=== PATIENT | male | born 1970 | race Caucasian/White ===

== ENCOUNTER 2021-03-21 19:27 | Observation (INO) ==
--- NOTE | 2021-03-21 19:37 | ED.PDOC ---
General ED Provider: Dr. ASH BUCK Stated Complaint: right knee painful today, no injury Mode of Arrival: Walk-In Information Source: Patient Exam Limitations: No limitations Nursing and Triage Documentation Reviewed and Agree: Yes Does patient meet sepsis criteria?: No System Inflammatory Response Syndrome: Not Applicable Sepsis Protocol: For patient's 13 years and over: Temp is 96.8 and below OR 101 and greater Pulse >90 BPM Resp >20/minute Acutely Altered Mental Status Are patient's symptoms suggestive of a new infection, such as: -Pneumonia -Skin, Soft Tissue -Endocarditis -UTI -Bone, Joint Infection -Implantable Device -Acute Abdominal Infection -Wound Infection -Meningitis -Blood Stream Catheter Infection -Unknown Musculoskeletal Complaint Exam Knee Pain Complaint/Exam Mechanism of Injury: Reports No known trauma Onset/Duration: Climbs a lot at work, denies kneeling, no wound. Symptoms Are: Still present Initial Severity: Moderate Current Severity: Moderate Location: Reports Discrete (right knee area) Character: Reports Dull, Aching and Throbbing Alleviating: Reports None Aggravating: Reports Movement, Weight bearing and Prolonged standing Associated Signs and Symptoms: Reports Swelling and Redness; Denies Bruising, Fever, Weakness, Numbness and Tingling Able to Bear Weight: Yes Related History: Reports Similar episode (No) and Occupational injury (Not clear) Septic Arthritis Risk Factors: Reports None Gout Risk Factors: Reports >40 years old, Male and Psoriasis Knee Findings: Present Swelling, Erythema, Warmth and Limited range of motion; Absent Ecchymosis and Effusion Tenderness: Present Pre-patellar and Joint (Difficult to know if joint itself inflamed because of overlying cellulitis) Hero Test Positive: No Dayanna Test Positive: No Limited Range of Motion: Present Active Review of Systems Review Of Systems Constitutional: Reports No symptoms Eyes: Reports No symptoms Ears, Nose, Mouth, Throat: Reports No symptoms Respiratory: Reports No symptoms Cardiac: Reports No symptoms GI: Reports No symptoms : Reports No symptoms Musculoskeletal: Reports No symptoms Skin: Reports No symptoms Neurological: Reports No symptoms Endocrine: Reports No symptoms Hematologic/Lymphatic: Reports No symptoms All Other Systems: Reviewed and Negative [facility] Medical History (Updated 03/22/21 @ 06:56 by ASH BUCK MD) Cellulitis of knee, right Psoriasis Family History BROTHER Cancer Mother Cancer AUNT Cancer FATHER Cancer Social History Smoking and tobacco status: Current every day smoker Tobacco type: cigarettes Smoking packs per day: 1 Smoking cigarettes per day: 20.0 Years smoked: 27 Smoking pack-years: 27.00 Tobacco: How many years used: 27 Quit status: not considering quitting Alcohol intake: never Physical Exam Physical Exam Appearance: Reports Well-appearing Ill-appearing: Mild Pain Distress: Moderate Eyes: Reports TRI ENT: Reports Oropharynx normal Neck: Supple Respiratory: Reports Airway patent and Breath sounds clear Cardiovascular: Reports RRR and Pulses normal GI/: Reports Soft and Nontender Musculoskeletal: Reports Normal strength, ROM intact and Other (normal exam except right knee area reveals soft tissue inflammation and pain, no abscess, does not seem to be an infected joint.) Skin: Reports Warm, Dry and Other (psoriasis noted, including over the anterior right knee) Neurological: Reports Sensation intact, Motor intact and Alert Psychiatric: Reports Affect appropriate and Mood appropriate Interpretation Radiology Interpretation Radiology Interpretation By: Radiologist Radiology Results: Negative Xray Comments: Right knee neg Procedures Additional Procedures Additional Procedures: Joint Aspiration (No joint fluid obtained after attempt from both medial and lateral approach. No complications.) Critical Care Note Critical Care Note Total Critical Care Time (mins): 0 Course Course Hematology/Chemistry: 03/22/21 04:48 03/21/21 20:20 Orders, Labs, Meds: Lab Review 03/21/21 03/21/21 03/21/21 20:20 20:20 20:20 WBC 23.89 H RBC 4.81 Hgb 14.9 Hct 42.8 MCV 89.0 MCH 31.0 MCHC 34.8 RDW Coeff of Aria 13.3 Plt Count 303 Immature Gran % (Auto) 0.4 Neut % (Auto) 75.9 H Lymph % (Auto) 13.4 Day % (Auto) 9.8 Eos % (Auto) 0.2 Baso % (Auto) 0.3 Neut # (Auto) 18.1 H Lymph # (Auto) 3.2 Day # (Auto) 2.3 H Eos # (Auto) 0.1 Baso # (Auto) 0.1 Immature Gran # (Auto) 0.1 Sodium 134.8 Potassium 4.22 Chloride 103.0 Carbon Dioxide 25.2 Anion Gap 10.82 BUN 21.0 H Creatinine 0.86 Estimated GFR (MDRD) 93.00 BUN/Creatinine Ratio 24.41 Glucose 112.4 H Uric Acid 8.25 Calcium 9.07 Total Bilirubin 0.72 AST 37.3 ALT 33.7 Alkaline Phosphatase 95.7 Total Protein 7.30 Albumin 4.22 Globulin 3.08 Albumin/Globulin Ratio 1.37 D-Dimer 365.72 Adenovirus (PCR) B. pertussis DNA (PCR) B.parapertussis DNA PCR C. pneumoniae DNA (PCR) Coronavirus OC43 (PCR) Coronavirus HKU1 (PCR) Coronavirus 229E (PCR) Coronavirus NL63 (PCR) Human Metapneumovir PCR Influenza Type A (PCR) Influenza B (RT-PCR) M. pneumoniae (PCR) Parainfluenza 1 (PCR) Parainfluenza 2 (PCR) Parainfluenza 3 (PCR) Parainfluenza 4 (PCR) RSV (PCR) Entero/Rhino (PCR) SARS-CoV-2 (PCR) 03/21/21 20:50 WBC RBC Hgb Hct MCV MCH MCHC RDW Coeff of Aria Plt Count Immature Gran % (Auto) Neut % (Auto) Lymph % (Auto) Day % (Auto) Eos % (Auto) Baso % (Auto) Neut # (Auto) Lymph # (Auto) Day # (Auto) Eos # (Auto) Baso # (Auto) Immature Gran # (Auto) Sodium Potassium Chloride Carbon Dioxide Anion Gap BUN Creatinine Estimated GFR (MDRD) BUN/Creatinine Ratio Glucose Uric Acid Calcium Total Bilirubin AST ALT Alkaline Phosphatase Total Protein Albumin Globulin Albumin/Globulin Ratio D-Dimer Adenovirus (PCR) Not detected B. pertussis DNA (PCR) Not detected B.parapertussis DNA PCR Not detected C. pneumoniae DNA (PCR) Not detected Coronavirus OC43 (PCR) Not detected Coronavirus HKU1 (PCR) Not detected Coronavirus 229E (PCR) Not detected Coronavirus NL63 (PCR) Not detected Human Metapneumovir PCR Not detected Influenza Type A (PCR) Not detected Influenza B (RT-PCR) Not detected M. pneumoniae (PCR) Not detected Parainfluenza 1 (PCR) Not detected Parainfluenza 2 (PCR) Not detected Parainfluenza 3 (PCR) Not detected Parainfluenza 4 (PCR) Not detected RSV (PCR) Not detected Entero/Rhino (PCR) Not detected SARS-CoV-2 (PCR) Not detected Orders Category Date Time Status ADMIT OBSERVATION [PLACE PATIENT OBSERVATION] .TO ADMISSION 03/21/21 22:11 Active MEDSURG (NON-MONITORED BED) ACTIVITY .BR with BRP CARE 03/21/21 22:14 Active REGULAR DIET DIETARY 03/21/21 Breakfast Ordered IV [ED IV/MEDIPORT/POWERPORT] .ONCE EMERGENCY 03/21/21 21:25 Active BLOOD CULTURE (ED ONLY) Stat LAB 03/21/21 22:26 Received C-REACTIVE PROTEIN Stat LAB 03/21/21 21:24 Ordered CBC W/ AUTO DIFF DAILY@0600 LAB 03/22/21 06:00 Ordered CBC W/ AUTO DIFF DAILY@0600 LAB 03/23/21 06:00 Ordered CBC W/ AUTO DIFF Stat LAB 03/21/21 20:20 Completed COMPREHENSIVE METABOLIC PANEL Stat LAB 03/21/21 20:20 Completed D-DIMER Stat LAB 03/21/21 20:20 Completed RESPIRATORY PANEL 2.1 (PCR) Stat LAB 03/21/21 20:50 Completed URIC ACID Stat LAB 03/21/21 20:20 Completed 0.9 % Sodium Chloride [Saline Flush] MEDS 03/21/21 21:25 Active 1 syr IVF PRN PRN Cefepime 1 gm Vial [Maxipime 1 gm Vial] MEDS 03/21/21 22:21 Discontinued 1 gm .ROUTE .STK-MED ONE Cefepime 1 gm Vial [Maxipime 1 gm Vial] 1 gm MEDS 03/21/21 22:09 Discontinued 0.9 % Sodium Chloride [Sodium Chloride] 50 ml IV ONCE Enoxaparin Sodium [Lovenox] MEDS 03/22/21 09:00 Active 40 mg SUBCUT DAILY Hydrocodone Bit/Acetaminophen [[place]udson 10-325] MEDS 03/21/21 22:10 Discontinued 1 tab PO ONCE ONE Ketorolac Tromethamine [Toradol] MEDS 03/21/21 20:03 Discontinued 60 mg IM ONCE ONE Vancomycin 1 gm MEDS 03/21/21 22:12 Discontinued 0.9 % Sodium Chloride [Sodium Chloride] 250 ml IV ONCE RESUSCITATION STATUS Routine OTHERS 03/21/21 22:14 Ordered KNEE, RIGHT 4 VIEWS Stat RADS 03/21/21 20:15 Completed Medications Generic Name Dose Route Start Last Admin Trade Name Freq PRN Reason Stop Dose Admin Hydrocodone Bitart/Acetaminophen 1 tab 03/22/21 01:55 Hydrocodone Bit/Acetaminophen 10/325 Mg Tablet PO Q6HR PRN Pain Enoxaparin Sodium 40 mg 03/22/21 09:00 Enoxaparin Sodium 40 Mg/0.4 Ml Syr SUBCUT DAILY REINALDO CEFEPIME 2 GM/D5W 2 gm in 50 mls @ 100 mls/hr 03/22/21 07:30 Maxipime 2 Gm/50 Ml D5w IV 03/25/21 07:29 Q8HR REINALDO Sodium Chloride 1 syr 03/21/21 21:25 03/22/21 05:53 0.9% Sodium Chloride 10 Ml Disp.Syrin IVF 1 syr PRN PRN Administration To flush IV Discontinued Medications Generic Name Dose Route Start Last Admin Trade Name Terryq PRN Reason Stop Dose Admin Hydrocodone Bitart/Acetaminophen 1 tab 03/21/21 22:10 03/21/21 22:35 Hydrocodone Bit/Acetaminophen 10/325 Mg Tablet PO 03/21/21 22:11 1 tab ONCE ONE Administration Cefepime HCl 1 gm/ Sodium 50 mls @ 50 mls/hr 03/21/21 22:09 03/21/21 22:32 Chloride IV 03/21/21 23:08 50 mls/hr ONCE ONE Administration Vancomycin HCl 1 gm/ Sodium 250 mls @ 250 mls/hr 03/21/21 22:12 03/22/21 00:02 Chloride IV 03/21/21 23:11 250 mls/hr ONCE ONE Administration Ketorolac Tromethamine 60 mg 03/21/21 20:03 03/21/21 20:13 Ketorolac Tromethamine 60 Mg/2 Ml Vial IM 03/21/21 20:04 60 mg ONCE ONE Administration Nicotine 1 patch 03/22/21 01:55 03/22/21 02:18 Nicotine 21 Mg Patch.Td24 TD 03/22/21 01:56 1 patch ONCE STA Administration Vital Signs: Temp Pulse Resp BP Pulse Ox 03/21/21 19:32 98.7 F 89 20 149/67 H 96 Discharge Plan Discharge Patient Disposition: PLACED OBSERVATION Discharge Problem: Cellulitis of knee, right ED Provider: ASH BUCK Condition: Stable Physician Progress Note: [Infection in overlying soft tissues right knee, cellulitis, no abscess. Joint itself not involved as aspiration did not reveal any synovial fluid to analyze. He has psoriasis on the anterior knee, tiny open area may be led to the cellulitis. WBC count up, o/w unremarkable labs. X-ray neg. Start cefepime and vanc, pharmacist to dose tomorrow. Pain med prn, elevate, heat. No PCP, will place in observation, he will not want to be in the hospital very long.]
[2021-03-21] MEDS ORDERED: TORADOL IM ONE (20:03)
[2021-03-21 20:25] LABS: BASOPHILS # (AUTO) 0.1 K/uL (0-0.2); BASOPHILS % (AUTO) 0.3 % (0.0-3.0); EOSINOPHILS # (AUTO) 0.1 K/ul (0.0-0.7); EOSINOPHILS % (AUTO) 0.2 % (0.0-7.0); HEMATOCRIT 42.8 % (42.0-52.0); HEMOGLOBIN 14.9 g/dl (14.0-18.0); IMMATURE GRANULOCYTE # (AUTO) 0.1 (0.0-1.0); IMMATURE GRANULOCYTE % (AUTO) 0.4 % (0.0-5.0); LYMPHOCYTES # (AUTO) 3.2 K/uL (0.60-3.4); LYMPHOCYTES % (AUTO) 13.4 (10.0-50.0); MEAN CORPUSCULAR HGB CONC 34.8 (31.8-35.4); MONOCYTES # (AUTO) 2.3 K/uL (0.4-2.0); MONOCYTES % (AUTO) 9.8 (0-10); NEUTROPHILS # (AUTO) 18.1 K/ul (2.0-6.9); NEUTROPHILS % (AUTO) 75.9 % (42.2-75.2); PLATELET COUNT 303 10^3/uL (140-440); RDW COEFFICIENT OF VARIATION 13.3 % (11.6-14.8); RED BLOOD COUNT 4.81 10^6/ul (4.70-6.10); WHITE BLOOD COUNT 23.89 K/ul (4.2-10.2)
[2021-03-21 20:36] LABS: ALANINE AMINOTRANSFERASE 33.7 U/L (0-50); ALBUMIN 4.22 g/dL (3.5-5.0); ALKALINE PHOSPHATASE 95.7 U/L (38-126); ASPARTATE AMINO TRANSFERASE 37.3 U/L (17-59); BILIRUBIN,TOTAL 0.72 mg/dL (0.2-1.3); CALCIUM 9.07 mg/dL (8.4-10.2); CARBON DIOXIDE 25.2 mmol/L (22-30.0); CREATININE 0.86 mg/dL (0.60-1.10); GLUCOSE 112.4 mg/dL (74-106); POTASSIUM 4.22 mmol/L (3.5-5.1); SODIUM 134.8 mmol/L (134.5-145); TOTAL PROTEIN 7.3 g/dL (6.3-8.2); URIC ACID 8.25 mg/dL (3.5-8.5)
--- NOTE | 2021-03-21 20:54 | DI ---
EXAM: Four views of the right knee. History: Right knee pain. Findings: No acute fracture or dislocation. No abnormal calcifications or radiopaque foreign bodies . Joint spaces are preserved. Mild anterior soft tissue swelling Impression: No acute osseous abnormality
[2021-03-21] MEDS ORDERED: MAXIPIME 1 GM VIAL 1 GM in SODIUM CHLORIDE 50 ML IV ONE (22:09)
[2021-03-21] MEDS ORDERED: NORCO 10-325 PO ONE (22:10)
[2021-03-21] MEDS ORDERED: VANCOMYCIN 1 GM in SODIUM CHLORIDE 250 ML IV ONE (22:12)
[2021-03-21] MEDS ORDERED: MAXIPIME 1 GM VIAL ONE (22:21)
[2021-03-21 22:55] LABS: BORDETELLA PARAPERTUSSIS (PCR) NOT DETECTED (NOT DETECT); BORDETELLA PERTUSSIS (PCR) NOT DETECTED (NOT DETECT); CHLAMYDIA PNEUMONIAE (PCR) NOT DETECTED (NOT DETECT); CORONAVIRUS 229E (PCR) NOT DETECTED (NOT DETECT); CORONAVIRUS HKU1 (PCR) NOT DETECTED (NOT DETECT); CORONAVIRUS NL63 (PCR) NOT DETECTED (NOT DETECT); CORONAVIRUS OC43 (PCR) NOT DETECTED (NOT DETECT); HUMAN METAPNEUMOVIRUS (PCR) NOT DETECTED (NOT DETECT); HUMAN RHINOVIRUS/ENTEROV (PCR) NOT DETECTED (NOT DETECT); INFLUENZA B (PCR) NOT DETECTED (NOT DETECT); MYCOPLASMA PNEUMONIAE (PCR) NOT DETECTED (NOT DETECT); PARAINFLUENZA VIRUS 1 (PCR) NOT DETECTED (NOT DETECT); PARAINFLUENZA VIRUS 2 (PCR) NOT DETECTED (NOT DETECT); PARAINFLUENZA VIRUS 3 (PCR) NOT DETECTED (NOT DETECT); PARAINFLUENZA VIRUS 4 (PCR) NOT DETECTED (NOT DETECT); RESPIRATORY SYNCYTIAL V (PCR) NOT DETECTED (NOT DETECT); SARS_COV_2 (PCR) NOT DETECTED (NOT DETECT)
[2021-03-21 23:43] LABS: ADENOVIRUS (PCR) NOT DETECTED (NOT DETECT)
[2021-03-22 01:34] VITALS: BMI 29.9
[2021-03-22] MEDS ORDERED: NICODERM 21 MG TD STA (01:55)
[2021-03-22] MEDS ORDERED: NORCO 10-325 PO PRN (01:55)
[2021-03-22 05:04] LABS: BASOPHILS # (AUTO) 0.1 K/uL (0-0.2); BASOPHILS % (AUTO) 0.3 % (0.0-3.0); EOSINOPHILS # (AUTO) 0.2 K/ul (0.0-0.7); HEMATOCRIT 41.8 % (42.0-52.0); HEMOGLOBIN 14.3 g/dl (14.0-18.0); IMMATURE GRANULOCYTE # (AUTO) 0.1 (0.0-1.0); IMMATURE GRANULOCYTE % (AUTO) 0.3 % (0.0-5.0); LYMPHOCYTES # (AUTO) 4.7 K/uL (0.60-3.4); LYMPHOCYTES % (AUTO) 23.8 (10.0-50.0); MEAN CORPUSCULAR HEMOGLOBIN 30.9 pg (27.0-31.0); MEAN CORPUSCULAR HGB CONC 34.2 (31.8-35.4); MEAN CORPUSCULAR VOLUME 90.3 fl (80.0-94.0); MONOCYTES # (AUTO) 2.2 K/uL (0.4-2.0); MONOCYTES % (AUTO) 11.1 (0-10); NEUTROPHILS # (AUTO) 12.5 K/ul (2.0-6.9); NEUTROPHILS % (AUTO) 63.5 % (42.2-75.2); PLATELET COUNT 274 10^3/uL (140-440); RDW COEFFICIENT OF VARIATION 13.3 % (11.6-14.8); RED BLOOD COUNT 4.63 10^6/ul (4.70-6.10); WHITE BLOOD COUNT 19.62 K/ul (4.2-10.2)
[2021-03-22] MEDS ORDERED: MAXIPIME 1 GM VIAL 1 GM in SODIUM CHLORIDE 50 ML IV ONE (07:00)
--- NOTE | 2021-03-22 07:11 | PCM ---
Chief Complaint Chief Complaint: Right knee painful for one day without injury. History of Present Illness History of Present Illness: Right knee began to hurt while at work today. Climbs a lot at work, but does not kneel on that knee. It became quite inflamed, no f ever, not o/w ill, no wound known. Does have psoriasis in extremities, including anterior knee. No hx of gout. Never had this problem before. Review of Systems Constitutional: Reports No symptoms Eyes: Reports No symptoms Ears: Reports No symptoms Nose: Reports No symptoms Throat: Reports No symptoms Mouth: Reports No symptoms Cardiovascular: Reports No symptoms Gastrointestinal: Reports No symptoms Genitourinary: Reports No symptoms Neurological: Reports No symptoms Musculoskeletal: Reports No symptoms Skin: Reports No symptoms Immunology: Reports No symptoms Hematology: Reports No symptoms Endocrine: Reports No symptoms Psychiatric: Reports No symptoms Habits: Reports Tobacco use Allergies Allergies Allergy/AdvReac Type Severity Reaction Status Date / Time meperidine [From Demerol] AdvReac Unknown Verified 03/21/21 19:51 [facility] Medical History (Updated 03/22/21 @ 06:56 by ASH BUCK MD) Cellulitis of knee, right Psoriasis Family History BROTHER Cancer Mother Cancer AUNT Cancer FATHER Cancer Social History Smoking and tobacco status: Current every day smoker Tobacco type: cigarettes Smoking packs per day: 1 Smoking cigarettes per day: 20.0 Years smoked: 27 Smoking pack-years: 27.00 Tobacco: How many years used: 27 Quit status: not considering quitting Alcohol intake: never Medications Medications: Medications Generic Name Dose Route Start Last Admin Trade Name Freq PRN Reason Stop Dose Admin Hydrocodone Bitart/Acetaminophen 1 tab 03/22/21 01:55 Hydrocodone Bit/Acetaminophen 10/325 Mg Tablet PO Q6HR PRN Pain Enoxaparin Sodium 40 mg 03/22/21 09:00 Enoxaparin Sodium 40 Mg/0.4 Ml Syr SUBCUT DAILY REINALDO Vancomycin HCl 1 gm/ Sodium 250 mls @ 250 mls/hr 03/22/21 09:00 Chloride IV 03/22/21 09:59 ONCE ONE Cefepime HCl 1 gm/ Sodium 50 mls @ 50 mls/hr 03/22/21 07:00 Chloride IV 03/22/21 07:59 ONCE ONE Sodium Chloride 1 syr 03/21/21 21:25 03/22/21 05:53 0.9% Sodium Chloride 10 Ml Disp.Syrin IVF 1 syr PRN PRN Administration To flush IV Body Composition Height: 5 ft 8.5 in Weight: 90.5 kg Body Mass Index (BMI): 29.9 Vital Signs Temperature: 98.0 F Pulse Rate: 70 Respiratory Rate: 18 Blood Pressure: 101/68 O2 Sat by Pulse Oximetry: 95 Physical Examination Appearance: Reports Well-appearing Ill-appearing: None Pain Distress: Moderate Eyes: Reports TRI ENT: Reports Oropharynx normal Neck: Supple Respiratory: Reports Airway patent and Breath sounds clear Cardiovascular: Reports RRR and Pulses normal GI/: Reports Soft and Nontender Musculoskeletal: Reports Normal strength, ROM intact and Other (Right knee inflamed in the soft tissues, joint itself does not seem imvolved.) Skin: Reports Warm and Dry Neurological: Reports Sensation intact, Motor intact, Alert and Alert to pain Psychiatric: Reports Affect appropriate and Mood appropriate Lab/Tests/Diagnostic Imaging Lab/Tests/Diagnostic Imaging: Lab Review 03/21/21 03/21/21 03/21/21 20:20 20:20 20:20 WBC 23.89 H RBC 4.81 Hgb 14.9 Hct 42.8 MCV 89.0 MCH 31.0 MCHC 34.8 RDW Coeff of Aria 13.3 Plt Count 303 Immature Gran % (Auto) 0.4 Neut % (Auto) 75.9 H Lymph % (Auto) 13.4 Barton % (Auto) 9.8 Eos % (Auto) 0.2 Baso % (Auto) 0.3 Neut # (Auto) 18.1 H Lymph # (Auto) 3.2 Barton # (Auto) 2.3 H Eos # (Auto) 0.1 Baso # (Auto) 0.1 Immature Gran # (Auto) 0.1 Sodium 134.8 Potassium 4.22 Chloride 103.0 Carbon Dioxide 25.2 Anion Gap 10.82 BUN 21.0 H Creatinine 0.86 Estimated GFR (MDRD) 93.00 BUN/Creatinine Ratio 24.41 Glucose 112.4 H Uric Acid 8.25 Calcium 9.07 Total Bilirubin 0.72 AST 37.3 ALT 33.7 Alkaline Phosphatase 95.7 Total Protein 7.30 Albumin 4.22 Globulin 3.08 Albumin/Globulin Ratio 1.37 D-Dimer 365.72 Adenovirus (PCR) B. pertussis DNA (PCR) B.parapertussis DNA PCR C. pneumoniae DNA (PCR) Coronavirus OC43 (PCR) Coronavirus HKU1 (PCR) Coronavirus 229E (PCR) Coronavirus NL63 (PCR) Human Metapneumovir PCR Influenza Type A (PCR) Influenza B (RT-PCR) M. pneumoniae (PCR) Parainfluenza 1 (PCR) Parainfluenza 2 (PCR) Parainfluenza 3 (PCR) Parainfluenza 4 (PCR) RSV (PCR) Entero/Rhino (PCR) SARS-CoV-2 (PCR) 03/21/21 03/22/21 20:50 04:48 WBC 19.62 H RBC 4.63 L Hgb 14.3 Hct 41.8 L MCV 90.3 MCH 30.9 MCHC 34.2 RDW Coeff of Aria 13.3 Plt Count 274 Immature Gran % (Auto) 0.3 Neut % (Auto) 63.5 Lymph % (Auto) 23.8 Barton % (Auto) 11.1 H Eos % (Auto) 1.0 Baso % (Auto) 0.3 Neut # (Auto) 12.5 H Lymph # (Auto) 4.7 H Barton # (Auto) 2.2 H Eos # (Auto) 0.2 Baso # (Auto) 0.1 Immature Gran # (Auto) 0.1 Sodium Potassium Chloride Carbon Dioxide Anion Gap BUN Creatinine Estimated GFR (MDRD) BUN/Creatinine Ratio Glucose Uric Acid Calcium Total Bilirubin AST ALT Alkaline Phosphatase Total Protein Albumin Globulin Albumin/Globulin Ratio D-Dimer Adenovirus (PCR) Not detected B. pertussis DNA (PCR) Not detected B.parapertussis DNA PCR Not detected C. pneumoniae DNA (PCR) Not detected Coronavirus OC43 (PCR) Not detected Coronavirus HKU1 (PCR) Not detected Coronavirus 229E (PCR) Not detected Coronavirus NL63 (PCR) Not detected Human Metapneumovir PCR Not detected Influenza Type A (PCR) Not detected Influenza B (RT-PCR) Not detected M. pneumoniae (PCR) Not detected Parainfluenza 1 (PCR) Not detected Parainfluenza 2 (PCR) Not detected Parainfluenza 3 (PCR) Not detected Parainfluenza 4 (PCR) Not detected RSV (PCR) Not detected Entero/Rhino (PCR) Not detected SARS-CoV-2 (PCR) Not detected Orders Category Date Time Status ADMIT OBSERVATION [PLACE PATIENT OBSERVATION] .TO ADMISSION 03/21/21 22:11 Active MEDSURG (NON-MONITORED BED) ACTIVITY .BR with BRP CARE 03/21/21 22:14 Active REGULAR DIET DIETARY 03/21/21 Breakfast Ordered IV [ED IV/MEDIPORT/POWERPORT] .ONCE EMERGENCY 03/21/21 21:25 Active BLOOD CULTURE (ED ONLY) Stat LAB 03/21/21 22:26 Received C-REACTIVE PROTEIN Stat LAB 03/21/21 21:24 Ordered CBC W/ AUTO DIFF DAILY@0600 LAB 03/22/21 06:00 Ordered CBC W/ AUTO DIFF DAILY@0600 LAB 03/23/21 06:00 Ordered CBC W/ AUTO DIFF Stat LAB 03/21/21 20:20 Completed COMPREHENSIVE METABOLIC PANEL Stat LAB 03/21/21 20:20 Completed D-DIMER Stat LAB 03/21/21 20:20 Completed RESPIRATORY PANEL 2.1 (PCR) Stat LAB 03/21/21 20:50 Completed URIC ACID Stat LAB 03/21/21 20:20 Completed 0.9 % Sodium Chloride [Saline Flush] MEDS 03/21/21 21:25 Active 1 syr IVF PRN PRN Cefepime 1 gm Vial [Maxipime 1 gm Vial] MEDS 03/21/21 22:21 Discontinued 1 gm .ROUTE .STK-MED ONE Cefepime 1 gm Vial [Maxipime 1 gm Vial] 1 gm MEDS 03/21/21 22:09 Discontinued 0.9 % Sodium Chloride [Sodium Chloride] 50 ml IV ONCE Cefepime 1 gm Vial [Maxipime 1 gm Vial] 1 gm MEDS 03/22/21 07:00 Ordered 0.9 % Sodium Chloride [Sodium Chloride] 50 ml IV ONCE Enoxaparin Sodium [Lovenox] MEDS 03/22/21 09:00 Active 40 mg SUBCUT DAILY Hydrocodone Bit/Acetaminophen [[place] 10-325] MEDS 03/21/21 22:10 Discontinued 1 tab PO ONCE ONE Hydrocodone Bit/Acetaminophen [Lorain 10-325] MEDS 03/22/21 01:55 Ordered 1 tab PO Q6HR PRN Ketorolac Tromethamine [Toradol] MEDS 03/21/21 20:03 Discontinued 60 mg IM ONCE ONE Nicotine 21 mg [Nicoderm 21 mg] MEDS 03/22/21 01:55 Stat 1 patch TD ONCE STA Vancomycin 1 gm MEDS 03/21/21 22:12 Discontinued 0.9 % Sodium Chloride [Sodium Chloride] 250 ml IV ONCE Vancomycin 1 gm MEDS 03/22/21 09:00 Ordered 0.9 % Sodium Chloride [Sodium Chloride] 250 ml IV ONCE RESUSCITATION STATUS Routine OTHERS 03/21/21 22:14 Ordered KNEE, RIGHT 4 VIEWS Stat RADS 03/21/21 20:15 Completed Medications Generic Name Dose Route Start Last Admin Trade Name Freq PRN Reason Stop Dose Admin Hydrocodone Bitart/Acetaminophen 1 tab 03/22/21 01:55 Hydrocodone Bit/Acetaminophen 10/325 Mg Tablet PO Q6HR PRN Pain Enoxaparin Sodium 40 mg 03/22/21 09:00 Enoxaparin Sodium 40 Mg/0.4 Ml Syr SUBCUT DAILY REINALDO Vancomycin HCl 1 gm/ Sodium 250 mls @ 250 mls/hr 03/22/21 09:00 Chloride IV 03/22/21 09:59 ONCE ONE Cefepime HCl 1 gm/ Sodium 50 mls @ 50 mls/hr 03/22/21 07:00 Chloride IV 03/22/21 07:59 ONCE ONE Sodium Chloride 1 syr 03/21/21 21:25 03/22/21 05:53 0.9% Sodium Chloride 10 Ml Disp.Syrin IVF 1 syr PRN PRN Administration To flush IV Discontinued Medications Generic Name Dose Route Start Last Admin Trade Name Freq PRN Reason Stop Dose Admin Hydrocodone Bitart/Acetaminophen 1 tab 03/21/21 22:10 03/21/21 22:35 Hydrocodone Bit/Acetaminophen 10/325 Mg Tablet PO 03/21/21 22:11 1 tab ONCE ONE Administration Cefepime HCl 1 gm/ Sodium 50 mls @ 50 mls/hr 03/21/21 22:09 03/21/21 22:32 Chloride IV 03/21/21 23:08 50 mls/hr ONCE ONE Administration Vancomycin HCl 1 gm/ Sodium 250 mls @ 250 mls/hr 03/21/21 22:12 03/22/21 00:02 Chloride IV 03/21/21 23:11 250 mls/hr ONCE ONE Administration Ketorolac Tromethamine 60 mg 03/21/21 20:03 03/21/21 20:13 Ketorolac Tromethamine 60 Mg/2 Ml Vial IM 03/21/21 20:04 60 mg ONCE ONE Administration Nicotine 1 patch 03/22/21 01:55 03/22/21 02:18 Nicotine 21 Mg Patch.Td24 TD 03/22/21 01:56 1 patch ONCE STA Administration Right knee x-ray WNL. Assessment (1) Cellulitis of knee, right: Status: Acute Code(s): L03.115 - Cellulitis of right lower limb SNOMED Code(s): 11307051353146232 Assessment: He has cellulitis of the overlying soft tissue around the right knee. Psoriasis probably a portal of entry for infection. May be infected bursitis somewhat, no hx of kneeling. Knee joint itself does not seem involved, therefore not a septic joint. WBC 23K, so admitted on cefepime and vanc, pharmacist to dose. Plan Plan: Place in observation for IV abx, elevate and heat to knee. Case reviewed next morning with Dr. Laura.
[2021-03-22] MEDS: MAXIPIME 2 GM/50 ML D5W 2 GM/50 ML BAG IV SCH ×3 (07:33→20:59)
[2021-03-22] MEDS: LOVENOX SUBCUT SCH (08:57)
[2021-03-22] MEDS: VANCOMYCIN 1.5 GRAM/300 ML PREMIX 1.5 GM/300 ML BAG IV SCH ×2 (08:57→21:42)
[2021-03-22] MEDS ORDERED: VANCOMYCIN 1 GM in SODIUM CHLORIDE 250 ML IV ONE (09:00)
[2021-03-22] MEDS ORDERED: TYLENOL PO ONE (09:02)
--- NOTE | 2021-03-22 11:25 | PCM ---
Chief Complaint Chief Complaint: Rt Knee Pain History of Present Illness History of Present Illness: Onset of symptoms yesterday morning. Initially note erythema to inner aspect on knee then progressed to posterior then to medal and inferior aspect. 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 Denies other recent events. Pain progressively worsened and his daughter encouraged him to come to hospital for evaluation and treatment. Review of Systems Constitutional: Denies No symptoms, Fever, Chills, Weakness, Sweats, Fatigue, Loss of appetite and Other Eyes: Denies No symptoms, Blurred vision, Double-vision, Discharge, Itching, Pain, Redness, Photophobia and Other Ears: Denies No symptoms, Pain, Bleeding, Drainage, Ringing, Hearing loss and Other Nose: Denies No symptoms, Bleeding, Congestion, Discharge and Other Throat: Denies No symptoms, Pain, Swelling, Voice change and Other Mouth: Denies No symptoms, Bleeding, Pain, Swelling and Other Respiratory: Denies No symptoms, Cough, Shortness of air, Wheeze, Hemoptysis, Pain with breathing and Other Cardiovascular: Denies No symptoms, Chest pain, Left arm pain, Diaphoresis, PND, Orthopnea, Edema, Palpitations, Syncope and Other Gastrointestinal: Denies No symptoms, Abdominal pain, Nausea, Vomiting, Diarrhea, Melena, Hematemesis, Hematochezia, Dysphagia, Constipation and Other Genitourinary: Denies No symptoms, dysuria, hematuria, frequency, incontinence, flank pain, penile discharge, testicular pain, testicular swelling and other Neurological: Denies No symptoms, Headache, Dizziness, Seizure, Numbness, Weakness, Speech difficulty, Problems with walking, Tremor, Fainting and Other Musculoskeletal: Reports Pain, Swelling in joints and Other (Reddness of Rt Knee) Skin: Reports Other (Erythema) Immunology: Denies No symptoms, Hives, Itching, Frequent infections, Difficulty healing and Other Hematology: Denies No symptoms, Easy bruising, Easy bleeding, Swollen glands and Other Endocrine: Denies No symptoms, Weight changes, Cold intolerance, Heat intolerance, Excessive thirst, Excessive hunger, Polyuria and Other Psychiatric: Denies No symptoms, Depression, Anxiety, Sleeplessness, Hopelessness, Suicidal, Hallucinations and Other Habits: Reports Tobacco use; Denies Substance use and Alcohol use Allergies Allergies Allergy/AdvReac Type Severity Reaction Status Date / Time meperidine [From Demerol] AdvReac Unknown Verified 03/21/21 19:51 [facility] Medical History Cellulitis of knee, right Psoriasis Family History BROTHER Cancer Mother Cancer AUNT Cancer FATHER Cancer Social History Smoking and tobacco status: Current every day smoker Tobacco type: cigarettes Smoking packs per day: 1 Smoking cigarettes per day: 20.0 Years smoked: 27 Smoking pack-years: 27.00 Tobacco: How many years used: 27 Quit status: not considering quitting Alcohol intake: never Medications Medications: Medications Generic Name Dose Route Start Last Admin Trade Name Freq PRN Reason Stop Dose Admin Hydrocodone Bitart/Acetaminophen 1 tab 03/22/21 01:55 Hydrocodone Bit/Acetaminophen 10/325 Mg Tablet PO Q6HR PRN Pain Enoxaparin Sodium 40 mg 03/22/21 09:00 03/22/21 08:57 Enoxaparin Sodium 40 Mg/0.4 Ml Syr SUBCUT 40 mg DAILY REINALDO Administration CEFEPIME 2 GM/D5W 2 gm in 50 mls @ 100 mls/hr 03/22/21 07:30 03/22/21 07:33 Maxipime 2 Gm/50 Ml D5w IV 03/25/21 07:29 100 mls/hr Q8HR REINALDO Administration VANCOMYCIN/WATER FOR INJ (PEG) 1.5 gm in 300 mls @ 200 mls/hr 03/22/21 09:00 03/22/21 08:57 Vancomycin 1.5 Gram/300 Ml Premix IV 03/25/21 08:59 200 mls/hr Q12HR REINALDO Administration Sodium Chloride 1 syr 03/21/21 21:25 03/22/21 05:53 0.9% Sodium Chloride 10 Ml Disp.Syrin IVF 1 syr PRN PRN Administration To flush IV Body Composition Height: 5 ft 8.5 in Weight: 199 lb 8.293 oz Body Mass Index (BMI): 29.9 Vital Signs Temperature: 98.0 F Pulse Rate: 79 Respiratory Rate: 18 Blood Pressure: 102/63 O2 Sat by Pulse Oximetry: 97 Physical Examination Appearance: Reports Well-appearing and Obese Ill-appearing: Not Applicable Pain Distress: Mild Eyes: Reports TRI, EOMI, Conjunctiva clear, Right pupil size, Left pupil size and Other ENT: Reports Ears normal, Nose normal, Oropharynx normal, TMs Occluded, Rhinorrhea, Epistaxis, Erythema, Exudate, Dry mucosa, Other and Not Examined Neck: Supple Respiratory: Reports Airway patent, Breath sounds clear, Breath sounds equal, Breath sounds diminished and Respirations nonlabored Cardiovascular: Reports RRR and Pulses normal GI/: Reports Soft, Nontender, No masses, Bowel sounds normal and No Organomegaly Musculoskeletal: Reports Normal strength, ROM intact, No calf tenderness, Edema (Rt Knee), Calf tenderness (Rt; Neg Popliteal tenderness; Erythema to Medial and lat knee joint region ;HOMANS negative/Rt Foot non inflamed or painful to touch; Note area healted puncture wound Great Toe), Other (Rt Knee-Infrapatella marked pain to palpation over infrapatella bursa region, Integumental compromise or open wound. NO Tender) and Not Examined Skin: Reports Warm, Dry, Normal color and Other (area of erythema -out lined sites demarkation with pen ) Neurological: Reports Sensation intact, Motor intact, Reflexes intact, Cranial nerves intact, Alert and Oriented Psychiatric: Reports Affect appropriate and Mood appropriate Lab/Tests/Diagnostic Imaging Lab/Tests/Diagnostic Imaging: Lab Review 03/21/21 03/21/21 03/21/21 20:20 20:20 20:20 WBC 23.89 H RBC 4.81 Hgb 14.9 Hct 42.8 MCV 89.0 MCH 31.0 MCHC 34.8 RDW Coeff of Aria 13.3 Plt Count 303 Immature Gran % (Auto) 0.4 Neut % (Auto) 75.9 H Lymph % (Auto) 13.4 [place] % (Auto) 9.8 Eos % (Auto) 0.2 Baso % (Auto) 0.3 Neut # (Auto) 18.1 H Lymph # (Auto) 3.2 [place] # (Auto) 2.3 H Eos # (Auto) 0.1 Baso # (Auto) 0.1 Immature Gran # (Auto) 0.1 Sodium 134.8 Potassium 4.22 Chloride 103.0 Carbon Dioxide 25.2 Anion Gap 10.82 BUN 21.0 H Creatinine 0.86 Estimated GFR (MDRD) 93.00 BUN/Creatinine Ratio 24.41 Glucose 112.4 H Uric Acid 8.25 Calcium 9.07 Total Bilirubin 0.72 AST 37.3 ALT 33.7 Alkaline Phosphatase 95.7 Total Protein 7.30 Albumin 4.22 Globulin 3.08 Albumin/Globulin Ratio 1.37 D-Dimer 365.72 Adenovirus (PCR) B. pertussis DNA (PCR) B.parapertussis DNA PCR C. pneumoniae DNA (PCR) Coronavirus OC43 (PCR) Coronavirus HKU1 (PCR) Coronavirus 229E (PCR) Coronavirus NL63 (PCR) Human Metapneumovir PCR Influenza Type A (PCR) Influenza B (RT-PCR) M. pneumoniae (PCR) Parainfluenza 1 (PCR) Parainfluenza 2 (PCR) Parainfluenza 3 (PCR) Parainfluenza 4 (PCR) RSV (PCR) Entero/Rhino (PCR) SARS-CoV-2 (PCR) 03/21/21 03/22/21 20:50 04:48 WBC 19.62 H RBC 4.63 L Hgb 14.3 Hct 41.8 L MCV 90.3 MCH 30.9 MCHC 34.2 RDW Coeff of Aria 13.3 Plt Count 274 Immature Gran % (Auto) 0.3 Neut % (Auto) 63.5 Lymph % (Auto) 23.8 [place] % (Auto) 11.1 H Eos % (Auto) 1.0 Baso % (Auto) 0.3 Neut # (Auto) 12.5 H Lymph # (Auto) 4.7 H [place] # (Auto) 2.2 H Eos # (Auto) 0.2 Baso # (Auto) 0.1 Immature Gran # (Auto) 0.1 Sodium Potassium Chloride Carbon Dioxide Anion Gap BUN Creatinine Estimated GFR (MDRD) BUN/Creatinine Ratio Glucose Uric Acid Calcium Total Bilirubin AST ALT Alkaline Phosphatase Total Protein Albumin Globulin Albumin/Globulin Ratio D-Dimer Adenovirus (PCR) Not detected B. pertussis DNA (PCR) Not detected B.parapertussis DNA PCR Not detected C. pneumoniae DNA (PCR) Not detected Coronavirus OC43 (PCR) Not detected Coronavirus HKU1 (PCR) Not detected Coronavirus 229E (PCR) Not detected Coronavirus NL63 (PCR) Not detected Human Metapneumovir PCR Not detected Influenza Type A (PCR) Not detected Influenza B (RT-PCR) Not detected M. pneumoniae (PCR) Not detected Parainfluenza 1 (PCR) Not detected Parainfluenza 2 (PCR) Not detected Parainfluenza 3 (PCR) Not detected Parainfluenza 4 (PCR) Not detected RSV (PCR) Not detected Entero/Rhino (PCR) Not detected SARS-CoV-2 (PCR) Not detected Orders Category Date Time Status ADMIT OBSERVATION [PLACE PATIENT OBSERVATION] .TO ADMISSION 03/21/21 22:11 Active MEDSURG (NON-MONITORED BED) ACTIVITY .BR with BRP CARE 03/21/21 22:14 Active REGULAR DIET DIETARY 03/21/21 Breakfast Ordered IV [ED IV/MEDIPORT/POWERPORT] .ONCE EMERGENCY 03/21/21 21:25 Active BLOOD CULTURE (ED ONLY) Stat LAB 03/21/21 22:26 Received C-REACTIVE PROTEIN Stat LAB 03/21/21 21:24 Ordered CBC W/ AUTO DIFF DAILY@0600 LAB 03/22/21 04:48 Completed CBC W/ AUTO DIFF DAILY@0600 LAB 03/23/21 06:00 Ordered CBC W/ AUTO DIFF Stat LAB 03/21/21 20:20 Completed COMPREHENSIVE METABOLIC PANEL Stat LAB 03/21/21 20:20 Completed D-DIMER Stat LAB 03/21/21 20:20 Completed RESPIRATORY PANEL 2.1 (PCR) Stat LAB 03/21/21 20:50 Completed URIC ACID Stat LAB 03/21/21 20:20 Completed VANCOMYCIN,TROUGH Timed LAB 03/24/21 08:30 Ordered 0.9 % Sodium Chloride [Saline Flush] MEDS 03/21/21 21:25 Active 1 syr IVF PRN PRN Acetaminophen [Tylenol] MEDS 03/22/21 09:02 Discontinued 650 mg PO ONCE ONE Cefepime 1 gm Vial [Maxipime 1 gm Vial] MEDS 03/21/21 22:21 Discontinued 1 gm .ROUTE .STK-MED ONE Cefepime 1 gm Vial [Maxipime 1 gm Vial] 1 gm MEDS 03/21/21 22:09 Discontinued 0.9 % Sodium Chloride [Sodium Chloride] 50 ml IV ONCE Cefepime 2 gm/D5w [Maxipime 2 gm/50 ml D5w] MEDS 03/22/21 07:30 Active 2 gm in 50 ml IV Q8HR Enoxaparin Sodium [Lovenox] MEDS 03/22/21 09:00 Active 40 mg SUBCUT DAILY Hydrocodone Bit/Acetaminophen [[place] 10-325] MEDS 03/21/21 22:10 Discontinued 1 tab PO ONCE ONE Hydrocodone Bit/Acetaminophen [[place] 10-325] MEDS 03/22/21 01:55 Active 1 tab PO Q6HR PRN Ketorolac Tromethamine [Toradol] MEDS 03/21/21 20:03 Discontinued 60 mg IM ONCE ONE Nicotine 21 mg [Nicoderm 21 mg] MEDS 03/22/21 01:55 Discontinued 1 patch TD ONCE STA Vancomycin 1 gm MEDS 03/21/21 22:12 Discontinued 0.9 % Sodium Chloride [Sodium Chloride] 250 ml IV ONCE Vancomycin/Water For Inj (Peg) [Vancomycin 1.5 Gram/300 MEDS 03/22/21 09:00 Active ml Premix] 1.5 gm in 300 ml IV Q12HR RESUSCITATION STATUS Routine OTHERS 03/21/21 22:14 Ordered KNEE, RIGHT 4 VIEWS Stat RADS 03/21/21 20:15 Completed Medications Generic Name Dose Route Start Last Admin Trade Name Freq PRN Reason Stop Dose Admin Hydrocodone Bitart/Acetaminophen 1 tab 03/22/21 01:55 Hydrocodone Bit/Acetaminophen 10/325 Mg Tablet PO Q6HR PRN Pain Enoxaparin Sodium 40 mg 03/22/21 09:00 03/22/21 08:57 Enoxaparin Sodium 40 Mg/0.4 Ml Syr SUBCUT 40 mg DAILY REINALDO Administration CEFEPIME 2 GM/D5W 2 gm in 50 mls @ 100 mls/hr 03/22/21 07:30 03/22/21 07:33 Maxipime 2 Gm/50 Ml D5w IV 03/25/21 07:29 100 mls/hr Q8HR REINALDO Administration VANCOMYCIN/WATER FOR INJ (PEG) 1.5 gm in 300 mls @ 200 mls/hr 03/22/21 09:00 03/22/21 08:57 Vancomycin 1.5 Gram/300 Ml Premix IV 03/25/21 08:59 200 mls/hr Q12HR REINALDO Administration Sodium Chloride 1 syr 03/21/21 21:25 03/22/21 05:53 0.9% Sodium Chloride 10 Ml Disp.Syrin IVF 1 syr PRN PRN Administration To flush IV Discontinued Medications Generic Name Dose Route Start Last Admin Trade Name [place] PRN Reason Stop Dose Admin Acetaminophen 650 mg 03/22/21 09:02 03/22/21 10:10 Acetaminophen 325 Mg Tablet PO 03/22/21 09:03 650 mg ONCE ONE Administration Hydrocodone Bitart/Acetaminophen 1 tab 03/21/21 22:10 03/21/21 22:35 Hydrocodone Bit/Acetaminophen 10/325 Mg Tablet PO 03/21/21 22:11 1 tab ONCE ONE Administration Cefepime HCl 1 gm/ Sodium 50 mls @ 50 mls/hr 03/21/21 22:09 03/21/21 22:32 Chloride IV 03/21/21 23:08 50 mls/hr ONCE ONE Administration Vancomycin HCl 1 gm/ Sodium 250 mls @ 250 mls/hr 03/21/21 22:12 03/22/21 00:02 Chloride IV 03/21/21 23:11 250 mls/hr ONCE ONE Administration Ketorolac Tromethamine 60 mg 03/21/21 20:03 03/21/21 20:13 Ketorolac Tromethamine 60 Mg/2 Ml Vial IM 03/21/21 20:04 60 mg ONCE ONE Administration Nicotine 1 patch 03/22/21 01:55 03/22/21 02:18 Nicotine 21 Mg Patch.Td24 TD 03/22/21 01:56 1 patch ONCE STA Administration Assessment (1) Cellulitis of knee, right: Status: Acute Code(s): L03.115 - Cellulitis of right lower limb SNOMED Code(s): 22579144780706035 Assessment: There is cellulitis surrounding overlying soft tissue around the right knee. There is a patch of Psoriasis overlying the patella bursa site and this could be a portal of entry for infection. There is minimal history of kneeling on Rt knee so this could be infected bursitis . Knee joint itself does not seem involved but will image with MRI scan complete to R/O a septic joint.. WBC 23K, Patient is admitted for IV antibiotics Cefepime and Vancomycin. Will consult pharmacist for Vancomycin dosing. Will add IV Solulmedrol for tx acute inflamation which hopefully will assist in reduction of edema and pain (2) Patellar bursitis of right knee: Status: Acute Code(s): M70.51 - Other bursitis of knee, right knee SNOMED Code(s): 0060920001925982 Plan Plan: Patient is admitted for IV antibiotics Cefepime and Vancomycin. Will consult pharmacist for Vancomycin dosing. Will add IV Solulmedrol for tx acute inflammation which hopefully will assist in reduction of edema and pain .
[2021-03-22 12:09] LABS: ERYTHROCYTE SEDIMENTATION RATE 3 mm/hr (0-15)
[2021-03-22] MEDS: SOLU-MEDROL 125 MG IVP SCH ×2 (13:02→21:57)
--- NOTE | 2021-03-22 13:35 | MRI ---
EXAM: MRI of the right knee without and with intravenous contrast. HISTORY: Pain and redness right below the knee cap since yesterday. No known injury. Erythema. COMPARISON: Right knee radiographs 03/21/2021. TECHNIQUE: Multiplanar MR images of the right knee were acquired using a 1.2 Norma magnet before and after the administration of a gadolinium-based intravenous contrast agent. FINDINGS: The medial meniscus is intact without a discrete surfacing tear. The lateral meniscus is intact witho ut a discrete surfacing tear. Intact anterior and posterior cruciate ligament fibers are identified. The medial collateral ligament is intact. The lateral collateral ligament complex and posterolateral corner are intact. Mild quadriceps and patellar tendinosis without a tendon tear. No significant subluxation of the pat uri. There is marked subcutaneous edema and enhancement throughout the anterior portion of the knee most pronounced at the patella through the patellar tendon and tibial tuberosity with extension media lly and laterally along the patellar retinacula. This is nonspecific but concerning for cellulitis g iven the clinical history. There is a heterogeneous T2 hyperintense collection measuring 2.0 x 1.6 x 0.8 cm in size with peripheral enhancement within the subcutaneous tissues overlying the lower pole the patella and proximal patellar tendon with an additional 3.6 x 3 pounds x 0.8 cm T hyperintense co llection with peripheral enhancement within the anterior subcutaneous tissues overlying the tibial tu berosity and distal portion of the patellar tendon. This could represent prepatellar bursitis though the extent of adjacent inflammatory changes, concerning for a septic bursitis/abscess. Suspected sm all tubular communicating component extending between the proximal and more distal collections at the level of the patellar tendon. Mild chondromalacia patella. Marked thinning ulceration of the cartilage of the trochlear groove. T he patellofemoral compartment. There is no evidence of an acute fracture or osteomyelitis. Small roshan int effusion with nonspecific synovial enhancement. No discrete cortical erosion. No popliteal cyst . The final report was faxed to the radiology department and emergency room at 1:29 p.m. on 04/11/2021. IMPRESSION: Marked cellulitis anteriorly. Heterogeneous subcutaneous fluid collections anteriorly from the level of the patella through the patellar tendon and tibial tuberosity with peripheral enhancement as desc ribed concerning for a septic bursitis/abscess. Aspiration and fluid culture is recommended. Correl ate for the presence of an overlying soft tissue wound. Small joint effusion with nonspecific synovial enhancement. No evidence of acute osteomyelitis. 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 Intact menisci, cruciate ligaments and collateral ligaments. Patellar/quadriceps tendinosis without a tendon tear.
[2021-03-22] MEDS: TYLENOL PO PRN (20:27)
[2021-03-22] MEDS: NICODERM 21 MG TD SCH (20:29)
[2021-03-23 05:11] LABS: HEMATOCRIT 48.5 % (42.0-52.0); HEMOGLOBIN 16.5 g/dl (14.0-18.0); MEAN CORPUSCULAR HEMOGLOBIN 30.9 pg (27.0-31.0); MEAN CORPUSCULAR VOLUME 90.8 fl (80.0-94.0); PLATELET COUNT 333 10^3/uL (140-440); RDW COEFFICIENT OF VARIATION 13.2 % (11.6-14.8); RED BLOOD COUNT 5.34 10^6/ul (4.70-6.10); WHITE BLOOD COUNT 33.74 K/ul (4.2-10.2)
[2021-03-23] MEDS: TYLENOL PO PRN ×2 (05:16→10:12)
[2021-03-23] MEDS: MAXIPIME 2 GM/50 ML D5W 2 GM/50 ML BAG IV SCH ×2 (05:17→12:10)
[2021-03-23 05:18] LABS: ANISOCYTOSIS NOT PRESENT (NOT PRESENT)
[2021-03-23 05:24] LABS: ALANINE AMINOTRANSFERASE 27.1 U/L (0-50); ALBUMIN 4.28 g/dL (3.5-5.0); ALKALINE PHOSPHATASE 103.7 U/L (38-126); ASPARTATE AMINO TRANSFERASE 26.5 U/L (17-59); BILIRUBIN,TOTAL 0.55 mg/dL (0.2-1.3); BLOOD UREA NITROGEN 16.8 mg/dL (9-20); CALCIUM 9.61 mg/dL (8.4-10.2); CARBON DIOXIDE 21.2 mmol/L (22-30.0); CHLORIDE 111.6 mmol/L (98-107); CREATININE 0.87 mg/dL (0.60-1.10); GLUCOSE 186.8 mg/dL (74-106); POTASSIUM 4.33 mmol/L (3.5-5.1); SODIUM 142.3 mmol/L (134.5-145); TOTAL PROTEIN 7.92 g/dL (6.3-8.2)
[2021-03-23] MEDS: SOLU-MEDROL 125 MG IVP SCH (05:37)
[2021-03-23] MEDS ORDERED: MILK OF MAGNESIA PO ONE (09:13)
[2021-03-23] MEDS: NICODERM 21 MG TD SCH (09:32)
[2021-03-23] MEDS: LOVENOX SUBCUT SCH (09:32)
[2021-03-23] MEDS: VANCOMYCIN 1.5 GRAM/300 ML PREMIX 1.5 GM/300 ML BAG IV SCH (09:32)
[2021-03-23 10:11] VITALS: BP 108/62; TEMP 97.5
[2021-03-23] MEDS ORDERED: BOOSTRIX IM ONE ×2 (12:18)
--- NOTE | 2021-03-23 12:32 | PCM.DC ---
Final Diagnosis: Pre-patellar infectious bursitis. (1) Cellulitis of knee, right: Status: Acute Code(s): L03.115 - Cellulitis of right lower limb SNOMED Code(s): 79145355262732901 (2) Patellar bursitis of right knee: Status: Acute Code(s): M70.51 - Other bursitis of knee, right knee SNOMED Code(s): 4777045812316207 Reason for Hospitalization: Right knee area infection. Prognosis at Discharge: Good Condition at Discharge: Stable. Medications at Discharge: Ambulatory Orders Medication Instructions Recorded cephalexin 500 mg PO Q6H 10 Days #40 cap 03/23/21 hydrocodone-acetaminophen 1 tab PO Q8H PRN #10 tab 03/23/21 sulfamethoxazole-trimethoprim 1 tab PO BID #20 tab 03/23/21 [Bactrim DS] Lab/Diagnostics: Laboratory Tests 03/21/21 03/21/21 03/21/21 20:20 20:20 20:20 WBC 23.89 H RBC 4.81 Hgb 14.9 Hct 42.8 MCV 89.0 MCH 31.0 MCHC 34.8 RDW Coeff of Aria 13.3 Plt Count 303 Immature Gran % (Auto) 0.4 Neut % (Auto) 75.9 H Lymph % (Auto) 13.4 [place] % (Auto) 9.8 Eos % (Auto) 0.2 Baso % (Auto) 0.3 Neut # (Auto) 18.1 H Lymph # (Auto) 3.2 [place] # (Auto) 2.3 H Eos # (Auto) 0.1 Baso # (Auto) 0.1 Immature Gran # (Auto) 0.1 Neutrophils % (Manual) Band Neutrophils % Lymphocytes % (Manual) Monocytes % (Manual) Anisocytosis ESR Sodium 134.8 Potassium 4.22 Chloride 103.0 Carbon Dioxide 25.2 Anion Gap 10.82 BUN 21.0 H Creatinine 0.86 Estimated GFR (MDRD) 93.00 BUN/Creatinine Ratio 24.41 Glucose 112.4 H Uric Acid 8.25 Calcium 9.07 Total Bilirubin 0.72 AST 37.3 ALT 33.7 Alkaline Phosphatase 95.7 Total Protein 7.30 Albumin 4.22 Globulin 3.08 Albumin/Globulin Ratio 1.37 D-Dimer 365.72 Adenovirus (PCR) B. pertussis DNA (PCR) B.parapertussis DNA PCR C. pneumoniae DNA (PCR) Coronavirus OC43 (PCR) Coronavirus HKU1 (PCR) Coronavirus 229E (PCR) Coronavirus NL63 (PCR) Human Metapneumovir PCR Influenza Type A (PCR) Influenza B (RT-PCR) M. pneumoniae (PCR) Parainfluenza 1 (PCR) Parainfluenza 2 (PCR) Parainfluenza 3 (PCR) Parainfluenza 4 (PCR) RSV (PCR) Entero/Rhino (PCR) SARS-CoV-2 (PCR) 03/21/21 03/22/21 03/22/21 20:50 04:48 04:58 WBC 19.62 H RBC 4.63 L Hgb 14.3 Hct 41.8 L MCV 90.3 MCH 30.9 MCHC 34.2 RDW Coeff of Aria 13.3 Plt Count 274 Immature Gran % (Auto) 0.3 Neut % (Auto) 63.5 Lymph % (Auto) 23.8 [place] % (Auto) 11.1 H Eos % (Auto) 1.0 Baso % (Auto) 0.3 Neut # (Auto) 12.5 H Lymph # (Auto) 4.7 H [place] # (Auto) 2.2 H Eos # (Auto) 0.2 Baso # (Auto) 0.1 Immature Gran # (Auto) 0.1 Neutrophils % (Manual) Band Neutrophils % Lymphocytes % (Manual) Monocytes % (Manual) Anisocytosis ESR 3 Sodium Potassium Chloride Carbon Dioxide Anion Gap BUN Creatinine Estimated GFR (MDRD) BUN/Creatinine Ratio Glucose Uric Acid Calcium Total Bilirubin AST ALT Alkaline Phosphatase Total Protein Albumin Globulin Albumin/Globulin Ratio D-Dimer Adenovirus (PCR) Not detected B. pertussis DNA (PCR) Not detected B.parapertussis DNA PCR Not detected C. pneumoniae DNA (PCR) Not detected Coronavirus OC43 (PCR) Not detected Coronavirus HKU1 (PCR) Not detected Coronavirus 229E (PCR) Not detected Coronavirus NL63 (PCR) Not detected Human Metapneumovir PCR Not detected Influenza Type A (PCR) Not detected Influenza B (RT-PCR) Not detected M. pneumoniae (PCR) Not detected Parainfluenza 1 (PCR) Not detected Parainfluenza 2 (PCR) Not detected Parainfluenza 3 (PCR) Not detected Parainfluenza 4 (PCR) Not detected RSV (PCR) Not detected Entero/Rhino (PCR) Not detected SARS-CoV-2 (PCR) Not detected 03/23/21 03/23/21 04:58 04:58 WBC 33.74 H D RBC 5.34 Hgb 16.5 Hct 48.5 D MCV 90.8 MCH 30.9 MCHC 34.0 RDW Coeff of Aria 13.2 Plt Count 333 Immature Gran % (Auto) Neut % (Auto) Lymph % (Auto) [place] % (Auto) Eos % (Auto) Baso % (Auto) Neut # (Auto) Lymph # (Auto) [place] # (Auto) Eos # (Auto) Baso # (Auto) Immature Gran # (Auto) Neutrophils % (Manual) 90.0 H Band Neutrophils % 2.0 Lymphocytes % (Manual) 6.0 L Monocytes % (Manual) 2.0 Anisocytosis Not present ESR Sodium 142.3 Potassium 4.33 Chloride 111.6 H Carbon Dioxide 21.2 L Anion Gap 13.83 BUN 16.8 Creatinine 0.87 Estimated GFR (MDRD) 92.00 BUN/Creatinine Ratio 19.31 Glucose 186.8 H Uric Acid Calcium 9.61 Total Bilirubin 0.55 AST 26.5 ALT 27.1 Alkaline Phosphatase 103.7 Total Protein 7.92 Albumin 4.28 Globulin 3.64 Albumin/Globulin Ratio 1.17 D-Dimer Adenovirus (PCR) B. pertussis DNA (PCR) B.parapertussis DNA PCR C. pneumoniae DNA (PCR) Coronavirus OC43 (PCR) Coronavirus HKU1 (PCR) Coronavirus 229E (PCR) Coronavirus NL63 (PCR) Human Metapneumovir PCR Influenza Type A (PCR) Influenza B (RT-PCR) M. pneumoniae (PCR) Parainfluenza 1 (PCR) Parainfluenza 2 (PCR) Parainfluenza 3 (PCR) Parainfluenza 4 (PCR) RSV (PCR) Entero/Rhino (PCR) SARS-CoV-2 (PCR) MRI right knee - cellulitis anterior knee soft tissues, no joint involvment. Infectious bursitis, possible prepatellar bursa abscess. Education Provided to Patient and Family: Knee infection. Follow-ups: To see a PCP early next week, in 3 days. . Discharge Disposition: Home Hospital Course: Admitted with a significant cellulitis right anterior knee. Knee joint did not seem involved, joint aspiration x 2 did not yield any synovial fluid. Exam c/w an infected bursitis/cellulitis. Abx tx with cefipime and vanc. Improved. MRI revealed a normal knee joint. Infection anterior soft tissue/bursitis. Attempted to drain bursa area with large bore needle, nothing obtained. Started on high dose steroids and WBC increased, but clinically infection improving and patient remained afebrile. He asked to be d/c home after 2 days. He was able to ambulate with very little difficulty, only had pain with full flexion of knee. Off work until next week.
== END 2021-03-23 14:27 | disposition home or self-care (01) ==
LOC: ED 19:27 → MEDSURG A 19:27 → UNDODISOB 03-23 12:28
PROVIDERS: ADMIT Emergency Medicine; ATTEND Internal Medicine Geriatric Medicine
DX: M25.561 Pain in right knee; L03.115 Cellulitis of right lower limb; L53.9 Erythematous condition, unspecified; M70.51 Other bursitis of knee, right knee; L40.9 Psoriasis, unspecified

== ENCOUNTER 2021-03-24 19:03 | Observation (INO) ==
[2021-03-24] MEDS ORDERED: TORADOL IVP STA (20:55)
[2021-03-24 21:17] LABS: BASOPHILS % (AUTO) 0.1 % (0.0-3.0); EOSINOPHILS % (AUTO) 0.1 % (0.0-7.0); HEMATOCRIT 41.7 % (42.0-52.0); HEMOGLOBIN 13.9 g/dl (14.0-18.0); IMMATURE GRANULOCYTE # (AUTO) 0.1 (0.0-1.0); IMMATURE GRANULOCYTE % (AUTO) 0.9 % (0.0-5.0); LYMPHOCYTES # (AUTO) 1.7 K/uL (0.60-3.4); LYMPHOCYTES % (AUTO) 11.1 (10.0-50.0); MEAN CORPUSCULAR HEMOGLOBIN 30.3 pg (27.0-31.0); MEAN CORPUSCULAR HGB CONC 33.3 (31.8-35.4); MEAN CORPUSCULAR VOLUME 90.8 fl (80.0-94.0); MONOCYTES # (AUTO) 1.5 K/uL (0.4-2.0); MONOCYTES % (AUTO) 9.5 (0-10); NEUTROPHILS # (AUTO) 11.9 K/ul (2.0-6.9); NEUTROPHILS % (AUTO) 78.3 % (42.2-75.2); PLATELET COUNT 232 10^3/uL (140-440); RDW COEFFICIENT OF VARIATION 13.6 % (11.6-14.8); RED BLOOD COUNT 4.59 10^6/ul (4.70-6.10)
--- NOTE | 2021-03-24 21:27 | ED.PDOC ---
General ED Provider: Dr. OBDULIA PALMER Chief Complaint: Extremity Swelling/Pain Stated Complaint: Severe pain rt knee and leg. Discharged Friday after hospitalization for acute cellulitis rt knee with infectious bursitis. Dr Diaz advised me patient was anxious to be discharged yesterday so he acc ommodated his wishes and discharged him to home. The patient had been receiving IV Maxipine and Vancomycin. Was prescribed Cephalexin and Bactrim DS. at time of discharge. He went home and started doing yard work. Later on yesterday PM became increasingly more fatigued with leg and knee pain. Today worked out door again and became weak, started having chills and chest aching that has since resolved. Came to ER for evaluation and treatment Time Seen by Provider: 03/24/21 19:30 Mode of Arrival: Wheelchair Information Source: Patient Exam Limitations: No limitations Seen Within Last 72 Hours for Same Complaint By: ED and In-Patient Facility Nursing and Triage Documentation Reviewed and Agree: Yes Does patient meet sepsis criteria?: No System Inflammatory Response Syndrome: Not Applicable Sepsis Protocol: For patient's 13 years and over: Temp is 96.8 and below OR 101 and greater Pulse >90 BPM Resp >20/minute Acutely Altered Mental Status Are patient's symptoms suggestive of a new infection, such as: -Pneumonia -Skin, Soft Tissue -Endocarditis -UTI -Bone, Joint Infection -Implantable Device -Acute Abdominal Infection -Wound Infection -Meningitis -Blood Stream Catheter Infection -Unknown Musculoskeletal Complaint Exam Lower Extremity Complaint/Exam Location of Pain: Reports Right, Leg and Knee Mechanism of Injury: Reports No known trauma Onset/Duration: 24 hr Symptoms Are: Still present Onset of Pain: Reports Hours Initial Severity: Moderate Current Severity: Mild Location: Reports Diffuse Character: Reports Aching and Stiffness Alleviating: Reports None Aggravating: Reports Movement, Weight bearing and Prolonged standing Able to Bear Weight: Yes Associated Signs and Symptoms: Reports Redness Related History: Reports Similar episode DVT Risk Factors: Reports None Septic Arthritis Risk Factors: Reports None Related Surgical History: Reports None Lower Extremity Findings: Present Swelling, Erythema, Warmth and Tenderness (Calf and pre patella bura) Review of Systems Review Of Systems Constitutional: Reports No symptoms Eyes: Reports No symptoms Ears, Nose, Mouth, Throat: Reports No symptoms Respiratory: Reports No symptoms Cardiac: Reports No symptoms GI: Reports No symptoms : Reports No symptoms Musculoskeletal: Reports No symptoms, Muscle pain and Muscle stiffness Skin: Reports No symptoms Neurological: Reports No symptoms Endocrine: Reports No symptoms Hematologic/Lymphatic: Reports No symptoms All Other Systems: Reviewed and Negative [facility] Medical History Cellulitis of knee, right Psoriasis Family History BROTHER Cancer Mother Cancer AUNT Cancer FATHER Cancer Social History Smoking and tobacco status: Current every day smoker Tobacco type: cigarettes Smoking packs per day: 1 Smoking cigarettes per day: 20.0 Years smoked: 27 Smoking pack-years: 27.00 Tobacco: How many years used: 27 Quit status: not considering quitting Alcohol intake: never Physical Exam Physical Exam Appearance: Reports Well-appearing and No pain distress Ill-appearing: Mild Pain Distress: Moderate Eyes: Reports TRI, EOMI and Conjunctiva clear ENT: Reports Ears normal, Nose normal and Oropharynx normal Neck: Supple Respiratory: Reports Airway patent, Breath sounds clear, Breath sounds equal and Respirations nonlabored Cardiovascular: Reports RRR, Pulses normal, No rub and No murmur GI/: Reports Soft, Nontender, No masses and Bowel sounds normal Musculoskeletal: Reports Normal strength and Edema Skin: Reports Warm, Dry, Normal color and Pale Neurological: Reports Sensation intact, Motor intact, Cranial nerves intact, Alert, Oriented and Alert to pain Psychiatric: Reports Affect appropriate, Mood appropriate and Anxious Interpretation Radiology Interpretation Exam Interpreted: Portable CXR (Normal findings) and Other (03/22/21 MRI SCAN knee -Marked cellulitis anteriorly. Heterogeneous subcutaneous fluid collections anteriorly from the level of the patella through the patellar tendon and tibial tuberosity with peripheral enhancement as described concerning for a septic bursitis/abscess. Aspiration and fluid cultur) EKG Interpretation Time of EKG #1: 23:16 Rate: Normal Rhythm: Sinus Ectopy: None Friend: NL ST Segment: Normal Interpretation: NSR Critical Care Note Critical Care Note Total Critical Care Time (mins): 60 Course Course Hematology/Chemistry: 03/24/21 21:15 03/24/21 21:15 Orders, Labs, Meds: Lab Review 03/24/21 03/24/21 03/24/21 21:15 21:15 21:15 WBC 15.20 H D RBC 4.59 L Hgb 13.9 L Hct 41.7 L D MCV 90.8 MCH 30.3 MCHC 33.3 RDW Coeff of Aria 13.6 Plt Count 232 D Immature Gran % (Auto) 0.9 Neut % (Auto) 78.3 H Lymph % (Auto) 11.1 [place] % (Auto) 9.5 Eos % (Auto) 0.1 Baso % (Auto) 0.1 Neut # (Auto) 11.9 H Lymph # (Auto) 1.7 [place] # (Auto) 1.5 Eos # (Auto) 0.0 Baso # (Auto) 0.0 Immature Gran # (Auto) 0.1 Sodium 136.9 Potassium 3.95 Chloride 107.4 H Carbon Dioxide 20.7 L Anion Gap 12.75 BUN 28.1 H Creatinine 1.87 H D Estimated GFR (MDRD) 38.00 BUN/Creatinine Ratio 15.02 Glucose 84.6 Lactic Acid Uric Acid 9.05 H Calcium 8.57 Total Bilirubin 0.38 AST 35.9 ALT 26.5 Alkaline Phosphatase 107.0 Total Creatine Kinase 80.3 Troponin I Total Protein 6.64 Albumin 3.63 Globulin 3.01 Albumin/Globulin Ratio 1.20 Procalcitonin 0.59 Adenovirus (PCR) B. pertussis DNA (PCR) B.parapertussis DNA PCR C. pneumoniae DNA (PCR) Coronavirus OC43 (PCR) Coronavirus HKU1 (PCR) Coronavirus 229E (PCR) Coronavirus NL63 (PCR) Human Metapneumovir PCR Influenza Type A (PCR) Influenza B (RT-PCR) M. pneumoniae (PCR) Parainfluenza 1 (PCR) Parainfluenza 2 (PCR) Parainfluenza 3 (PCR) Parainfluenza 4 (PCR) RSV (PCR) Entero/Rhino (PCR) SARS-CoV-2 (PCR) 03/24/21 03/24/21 03/24/21 21:15 21:15 23:20 WBC RBC Hgb Hct MCV MCH MCHC RDW Coeff of Aria Plt Count Immature Gran % (Auto) Neut % (Auto) Lymph % (Auto) [place] % (Auto) Eos % (Auto) Baso % (Auto) Neut # (Auto) Lymph # (Auto) [place] # (Auto) Eos # (Auto) Baso # (Auto) Immature Gran # (Auto) Sodium Potassium Chloride Carbon Dioxide Anion Gap BUN Creatinine Estimated GFR (MDRD) BUN/Creatinine Ratio Glucose Lactic Acid 1.86 Uric Acid Calcium Total Bilirubin AST ALT Alkaline Phosphatase Total Creatine Kinase Troponin I 0.014 Total Protein Albumin Globulin Albumin/Globulin Ratio Procalcitonin Adenovirus (PCR) Not detected B. pertussis DNA (PCR) Not detected B.parapertussis DNA PCR Not detected C. pneumoniae DNA (PCR) Not detected Coronavirus OC43 (PCR) Not detected Coronavirus HKU1 (PCR) Not detected Coronavirus 229E (PCR) Not detected Coronavirus NL63 (PCR) Not detected Human Metapneumovir PCR Not detected Influenza Type A (PCR) Not detected Influenza B (RT-PCR) Not detected M. pneumoniae (PCR) Not detected Parainfluenza 1 (PCR) Not detected Parainfluenza 2 (PCR) Not detected Parainfluenza 3 (PCR) Not detected Parainfluenza 4 (PCR) Not detected RSV (PCR) Not detected Entero/Rhino (PCR) Not detected SARS-CoV-2 (PCR) Not detected Orders Category Date Time Status PLACE PATIENT OBSERVATION .TO MEDSURG (MONITORED BED ADMISSION 03/24/21 23:47 Active ) EKG-(ED ONLY) Stat CARDIO 03/24/21 23:07 Completed INTAKE & OUTPUT Q8HR CARE 03/24/21 23:48 Active TELEMETRY MONITORING TELE CARE 03/24/21 23:47 Active REGULAR DIET DIETARY 03/24/21 Breakfast Ordered IV [ED IV/MEDIPORT/POWERPORT] .ONCE EMERGENCY 03/24/21 20:55 Active BASIC METABOLIC PANEL DAILY@0600 LAB 03/25/21 06:00 Ordered BASIC METABOLIC PANEL DAILY@0600 LAB 03/26/21 06:00 Ordered BLOOD CULTURE (ED ONLY) Stat LAB 03/24/21 21:15 Received CBC W/ AUTO DIFF DAILY@0600 LAB 03/25/21 06:00 Ordered CBC W/ AUTO DIFF DAILY@0600 LAB 03/26/21 06:00 Ordered CBC W/ AUTO DIFF Stat LAB 03/24/21 21:15 Completed CMP [COMPREHENSIVE METABOLIC PANEL] Stat LAB 03/24/21 21:15 Completed CPK [CREATINE KINASE] Stat LAB 03/24/21 21:15 Completed LACTIC ACID Stat LAB 03/24/21 21:15 Completed PROCALCITONIN Stat LAB 03/24/21 21:15 Completed RESPIRATORY PANEL 2.1 (PCR) Stat LAB 03/24/21 23:20 Completed TROPONIN I Stat LAB 03/24/21 21:15 Completed UA [URINALYSIS C & S IF INDICATED] Stat LAB 03/24/21 20:54 Uncollected URIC ACID Stat LAB 03/24/21 21:15 Completed 0.9 % Sodium Chloride [Saline Flush] MEDS 03/24/21 20:55 Active 1 syr IVF PRN PRN Cefepime 2 gm/D5w [Maxipime 2 gm/50 ml D5w] MEDS 03/24/21 23:45 Active 2 gm in 50 ml IV Q12HR Enoxaparin Sodium [Lovenox] MEDS 03/25/21 09:00 Active 40 mg SUBCUT DAILY Ketorolac Tromethamine [Toradol] MEDS 03/24/21 20:55 Discontinued 30 mg IVP ONCE STA Sodium Chloride 0.9% [Sodium Chloride] 1,000 ml MEDS 03/24/21 21:00 Active IV QSHIFT RESUSCITATION STATUS Routine OTHERS 03/24/21 23:48 Ordered CHEST, 2 VIEWS PA & LAT Stat RADS 03/24/21 20:[address] ABDOMEN/PELVIS WO CONTRAST Stat RADS 03/24/21 20:56 Completed Medications Generic Name Dose Route Start Last Admin Trade Name Freq PRN Reason Stop Dose Admin Enoxaparin Sodium 40 mg 03/25/21 09:00 Enoxaparin Sodium 40 Mg/0.4 Ml Syr SUBCUT DAILY REINALDO Sodium Chloride 1,000 mls @ 125 mls/hr 03/24/21 21:00 03/24/21 23:48 Sodium Chloride IV 125 mls/hr QSHIFT REINALDO Administration CEFEPIME 2 GM/D5W 2 gm in 50 mls @ 100 mls/hr 03/24/21 23:45 03/24/21 23:56 Maxipime 2 Gm/50 Ml D5w IV 03/27/21 23:44 100 mls/hr Q12HR REINALDO Administration Sodium Chloride 1 syr 03/24/21 20:55 03/24/21 23:48 0.9% Sodium Chloride 10 Ml Disp.Syrin IVF 1 syr PRN PRN Administration To flush IV Discontinued Medications Generic Name Dose Route Start Last Admin Trade Name Freq PRN Reason Stop Dose Admin Ketorolac Tromethamine 30 mg 03/24/21 20:55 03/24/21 23:49 Ketorolac Tromethamine 30 Mg/Ml Vial IVP 03/24/21 20:56 30 mg ONCE STA Administration Vital Signs: Temp Pulse Resp BP Pulse Ox 03/24/21 19:04 99.1 F 99 H 24 136/80 90 L Discharge Plan Discharge Patient Disposition: PLACED OBSERVATION Discharge Problem: Cellulitis of knee, right, Patellar bursitis of right knee, Edema of lower extremity, Acute kidney injury ED Provider: OBDULIA PALMER Condition: Stable Physician Progress Note: []Recommended admitting patient to hospital for additional IV antibiotics and IV fluid infusion and monitoring renal function
[2021-03-24 21:35] LABS: ALANINE AMINOTRANSFERASE 26.5 U/L (0-50); ALBUMIN 3.63 g/dL (3.5-5.0); ASPARTATE AMINO TRANSFERASE 35.9 U/L (17-59); BILIRUBIN,TOTAL 0.38 mg/dL (0.2-1.3); BLOOD UREA NITROGEN 28.1 mg/dL (9-20); CALCIUM 8.57 mg/dL (8.4-10.2); CARBON DIOXIDE 20.7 mmol/L (22-30.0); CHLORIDE 107.4 mmol/L (98-107); CREATINE KINASE 80.3 U/L (55-170); CREATININE 1.87 mg/dL (0.60-1.10); GLUCOSE 84.6 mg/dL (74-106); POTASSIUM 3.95 mmol/L (3.5-5.1); SODIUM 136.9 mmol/L (134.5-145); TOTAL PROTEIN 6.64 g/dL (6.3-8.2); URIC ACID 9.05 mg/dL (3.5-8.5)
--- NOTE | 2021-03-24 21:40 | CT ---
EXAM: CT of the abdomen and pelvis without contrast. TECHNIQUE: CT of the abdomen and pelvis was performed without the use of contrast. Multiplanar refo rmats were performed. COMPARISON: None. HISTORY: Abdominal discomfort. FINDINGS: Evaluation of solid organs and blood vessels is suboptimal without the benefit of contrast. Imaged lower thorax: Coronary calcifications noted. Liver: Unremarkable. Gallbladder/Bile Ducts: No biliary dilation. The gallbladder is partially contracted but there is thi ckening and hypodensity of the gallbladder wall suggesting edema. No cholelithiasis demonstrated. Spleen: Unremarkable. Pancreas: Unremarkable. Adrenals: Unremarkable. Kidneys/Ureters: Unremarkable. Bowel/mesentery/peritoneum: No bowel obstruction. Normal appendix. Colonic diverticulosis without martita dence of acute diverticulitis. No free air or ascites. Retroperitoneum/vessels: Mild scattered calcific atherosclerosis. No adenopathy. Pelvis: Unremarkable. Bones/body wall: Mild multilevel spinal degenerative changes. IMPRESSION: The gallbladder is contracted but there is gallbladder wall thickening and hypodensity which could re present adenomyomatosis or edema related to hepatitis or acalculus cholecystitis in the proper settin g. Ultrasound may be helpful for further evaluation. Mild calcific atherosclerosis. All CT scans are performed using dose optimization techniques as appropriate to the performed exam an d include at least one of the following: Automated exposure control, adjustment of the mA and/or kV according t o size, and the use of iterative reconstruction technique.
--- NOTE | 2021-03-24 21:44 | DI ---
EXAM: Chest two views HISTORY: Fever and chills FINDINGS: Normal cardiac and mediastinal contours. Normal pulmonary vasculature. Lungs are clear. No significant abnormality of the bony thorax. IMPRESSION: Chest radiograph within normal limits.
[2021-03-24 23:28] LABS: BORDETELLA PARAPERTUSSIS (PCR) NOT DETECTED (NOT DETECT); BORDETELLA PERTUSSIS (PCR) NOT DETECTED (NOT DETECT); CHLAMYDIA PNEUMONIAE (PCR) NOT DETECTED (NOT DETECT); CORONAVIRUS 229E (PCR) NOT DETECTED (NOT DETECT); CORONAVIRUS HKU1 (PCR) NOT DETECTED (NOT DETECT); CORONAVIRUS NL63 (PCR) NOT DETECTED (NOT DETECT); CORONAVIRUS OC43 (PCR) NOT DETECTED (NOT DETECT); HUMAN METAPNEUMOVIRUS (PCR) NOT DETECTED (NOT DETECT); HUMAN RHINOVIRUS/ENTEROV (PCR) NOT DETECTED (NOT DETECT); INFLUENZA B (PCR) NOT DETECTED (NOT DETECT); MYCOPLASMA PNEUMONIAE (PCR) NOT DETECTED (NOT DETECT); PARAINFLUENZA VIRUS 1 (PCR) NOT DETECTED (NOT DETECT); PARAINFLUENZA VIRUS 2 (PCR) NOT DETECTED (NOT DETECT); PARAINFLUENZA VIRUS 3 (PCR) NOT DETECTED (NOT DETECT); PARAINFLUENZA VIRUS 4 (PCR) NOT DETECTED (NOT DETECT); RESPIRATORY SYNCYTIAL V (PCR) NOT DETECTED (NOT DETECT); SARS_COV_2 (PCR) NOT DETECTED (NOT DETECT)
[2021-03-24] MEDS: SODIUM CHLORIDE 1,000 ML IV SCH (23:48)
[2021-03-24] MEDS: MAXIPIME 2 GM/50 ML D5W 2 GM/50 ML BAG IV SCH (23:56)
[2021-03-25 00:10] LABS: ADENOVIRUS (PCR) NOT DETECTED (NOT DETECT)
[2021-03-25 00:33] VITALS: BMI 29.9
[2021-03-25 05:05] LABS: BASOPHILS % (AUTO) 0.2 % (0.0-3.0); EOSINOPHILS # (AUTO) 0.1 K/ul (0.0-0.7); EOSINOPHILS % (AUTO) 0.5 % (0.0-7.0); HEMATOCRIT 38.1 % (42.0-52.0); HEMOGLOBIN 13.1 g/dl (14.0-18.0); IMMATURE GRANULOCYTE # (AUTO) 0.1 (0.0-1.0); IMMATURE GRANULOCYTE % (AUTO) 0.9 % (0.0-5.0); LYMPHOCYTES # (AUTO) 1.7 K/uL (0.60-3.4); LYMPHOCYTES % (AUTO) 16.7 (10.0-50.0); MEAN CORPUSCULAR HEMOGLOBIN 30.8 pg (27.0-31.0); MEAN CORPUSCULAR HGB CONC 34.4 (31.8-35.4); MEAN CORPUSCULAR VOLUME 89.4 fl (80.0-94.0); MONOCYTES # (AUTO) 0.4 K/uL (0.4-2.0); MONOCYTES % (AUTO) 3.6 (0-10); NEUTROPHILS # (AUTO) 8.2 K/ul (2.0-6.9); NEUTROPHILS % (AUTO) 78.1 % (42.2-75.2); PLATELET COUNT 282 10^3/uL (140-440); RDW COEFFICIENT OF VARIATION 13.9 % (11.6-14.8); RED BLOOD COUNT 4.26 10^6/ul (4.70-6.10); WHITE BLOOD COUNT 10.43 K/ul (4.2-10.2)
[2021-03-25 05:19] LABS: BLOOD UREA NITROGEN 31.8 mg/dL (9-20); CALCIUM 7.79 mg/dL (8.4-10.2); CARBON DIOXIDE 20.5 mmol/L (22-30.0); CHLORIDE 107.1 mmol/L (98-107); CREATININE 2.14 mg/dL (0.60-1.10); GLUCOSE 98.4 mg/dL (74-106); POTASSIUM 4.01 mmol/L (3.5-5.1); SODIUM 134.3 mmol/L (134.5-145)
[2021-03-25] MEDS: SODIUM CHLORIDE 1,000 ML IV SCH ×3 (06:50→17:10)
[2021-03-25] MEDS: CLEOCIN 600 MG/50 ML D5W 600 MG/50 ML BAG IV SCH ×3 (08:54→20:23)
[2021-03-25] MEDS: LOVENOX SUBCUT SCH (08:54)
[2021-03-25 09:31] LABS: ERYTHROCYTE SEDIMENTATION RATE 12 mm/hr (0-15)
[2021-03-25] MEDS: MAXIPIME 2 GM/50 ML D5W 2 GM/50 ML BAG IV SCH ×2 (10:15→21:29)
[2021-03-25] MEDS: TYLENOL PO PRN ×2 (10:15→18:07)
[2021-03-25 18:13] LABS: BILIRUBIN,URINE Negative (NEGATIVE); CLARITY,URINE Clear (CLEAR); COLOR,URINE Yellow (YELLOW); GLUCOSE, URINE (UA) Negative (NEGATIVE); KETONES,URINE Negative (NEGATIVE); LEUKOCYTE ESTERASE ,URINE Negative (NEGATIVE); NITRITE,URINE Negative (NEGATIVE); PH,URINE 5.5 (5-9); PROTEIN,URINE Negative (NEGATIVE); URINE, BLOOD Negative (NEGATIVE); UROBILINOGEN,URINE 0.2 (0.2)
[2021-03-26] MEDS: SODIUM CHLORIDE 1,000 ML IV SCH ×3 (03:21→13:02)
[2021-03-26 05:00] LABS: BASOPHILS % (AUTO) 0.3 % (0.0-3.0); EOSINOPHILS % (AUTO) 0.3 % (0.0-7.0); HEMOGLOBIN 13.8 g/dl (14.0-18.0); IMMATURE GRANULOCYTE # (AUTO) 0.1 (0.0-1.0); IMMATURE GRANULOCYTE % (AUTO) 1.4 % (0.0-5.0); LYMPHOCYTES # (AUTO) 1.4 K/uL (0.60-3.4); MEAN CORPUSCULAR HEMOGLOBIN 30.3 pg (27.0-31.0); MEAN CORPUSCULAR HGB CONC 34.5 (31.8-35.4); MEAN CORPUSCULAR VOLUME 87.9 fl (80.0-94.0); MONOCYTES # (AUTO) 0.5 K/uL (0.4-2.0); MONOCYTES % (AUTO) 6.7 (0-10); NEUTROPHILS # (AUTO) 5.3 K/ul (2.0-6.9); NEUTROPHILS % (AUTO) 72.3 % (42.2-75.2); PLATELET COUNT 185 10^3/uL (140-440); RDW COEFFICIENT OF VARIATION 13.7 % (11.6-14.8); RED BLOOD COUNT 4.55 10^6/ul (4.70-6.10); WHITE BLOOD COUNT 7.36 K/ul (4.2-10.2)
[2021-03-26 05:16] LABS: ALBUMIN 2.99 g/dL (3.5-5.0); ASPARTATE AMINO TRANSFERASE 42.1 U/L (17-59); BILIRUBIN,TOTAL 0.59 mg/dL (0.2-1.3); BLOOD UREA NITROGEN 27.5 mg/dL (9-20); CALCIUM 7.59 mg/dL (8.4-10.2); CARBON DIOXIDE 17.2 mmol/L (22-30.0); CREATININE 1.59 mg/dL (0.60-1.10); GLUCOSE 92.5 mg/dL (74-106); POTASSIUM 4.07 mmol/L (3.5-5.1); SODIUM 133.7 mmol/L (134.5-145); TOTAL PROTEIN 5.87 g/dL (6.3-8.2)
[2021-03-26] MEDS: CLEOCIN 600 MG/50 ML D5W 600 MG/50 ML BAG IV SCH ×3 (05:56→20:40)
[2021-03-26] MEDS: MAXIPIME 2 GM/50 ML D5W 2 GM/50 ML BAG IV SCH ×3 (07:28→22:08)
[2021-03-26] MEDS: LOVENOX SUBCUT SCH (09:26)
--- NOTE | 2021-03-26 10:17 | PCM.PROG ---
Date Seen by Provider: 03/26/21 Time Seen by Provider: 10:16 Subjective: pt improving right knee cellulitis Objective: Vitals: T=98.4 F, P=69, R=24, MT=264/79, SPO2=94 HEENT: [] Neck: [] Lungs: [] CVS: [] Abdomen: [] Extremities: [] Neurological: [] Skin: [] Lab/Tests/Diagnostic Imaging: [] Plan: will continue iv antibiotics and iv ns hydration, care to Dr Parham at 19 :00
[2021-03-27] MEDS: SODIUM CHLORIDE 1,000 ML IV SCH ×4 (00:55→14:46)
[2021-03-27] MEDS: CLEOCIN 600 MG/50 ML D5W 600 MG/50 ML BAG IV SCH ×3 (05:17→21:27)
[2021-03-27 05:24] LABS: BASOPHILS % (AUTO) 0.4 % (0.0-3.0); EOSINOPHILS # (AUTO) 0.2 K/ul (0.0-0.7); HEMATOCRIT 39.6 % (42.0-52.0); HEMOGLOBIN 13.8 g/dl (14.0-18.0); IMMATURE GRANULOCYTE # (AUTO) 0.1 (0.0-1.0); IMMATURE GRANULOCYTE % (AUTO) 1.7 % (0.0-5.0); LYMPHOCYTES # (AUTO) 2.3 K/uL (0.60-3.4); LYMPHOCYTES % (AUTO) 29.4 (10.0-50.0); MEAN CORPUSCULAR HEMOGLOBIN 30.5 pg (27.0-31.0); MEAN CORPUSCULAR HGB CONC 34.8 (31.8-35.4); MEAN CORPUSCULAR VOLUME 87.4 fl (80.0-94.0); MONOCYTES # (AUTO) 1.3 K/uL (0.4-2.0); MONOCYTES % (AUTO) 16.3 (0-10); NEUTROPHILS # (AUTO) 3.8 K/ul (2.0-6.9); NEUTROPHILS % (AUTO) 49.2 % (42.2-75.2); PLATELET COUNT 132 10^3/uL (140-440); RDW COEFFICIENT OF VARIATION 13.5 % (11.6-14.8); RED BLOOD COUNT 4.53 10^6/ul (4.70-6.10); WHITE BLOOD COUNT 7.65 K/ul (4.2-10.2)
[2021-03-27 05:46] LABS: ALANINE AMINOTRANSFERASE 23.4 U/L (0-50); ALBUMIN 3.09 g/dL (3.5-5.0); ALKALINE PHOSPHATASE 118.5 U/L (38-126); ASPARTATE AMINO TRANSFERASE 37.6 U/L (17-59); BILIRUBIN,TOTAL 0.48 mg/dL (0.2-1.3); CALCIUM 8.02 mg/dL (8.4-10.2); CARBON DIOXIDE 19.6 mmol/L (22-30.0); CHLORIDE 112.3 mmol/L (98-107); CREATININE 1.27 mg/dL (0.60-1.10); GLUCOSE 117.7 mg/dL (74-106); POTASSIUM 4.29 mmol/L (3.5-5.1); SODIUM 138.3 mmol/L (134.5-145); TOTAL PROTEIN 6.12 g/dL (6.3-8.2)
[2021-03-27] MEDS: MAXIPIME 2 GM/50 ML D5W 2 GM/50 ML BAG IV SCH ×3 (06:18→20:26)
[2021-03-27] MEDS: LOVENOX SUBCUT SCH (09:32)
--- NOTE | 2021-03-27 21:31 | PCM.PROG ---
Date Seen by Provider: 03/27/21 Time Seen by Provider: 09:50 Subjective: Feeling better today, Less pain of Rt Knee and leg Objective: Vitals: T=98.1 F, P=54, R=18, DW=561/81, SPO2=97 HEENT: Clear Neck: soft supple Lungs:CTA CVS: HRRR Abdomen: [] Extremities: Decreased erythema and swelling Rt Leg Neurological: [] Skin: [] Lab/Tests/Diagnostic Imaging: [] (1) Patellar bursitis of right knee: Status: Acute Code(s): M70.51 - Other bursitis of knee, right knee SNOMED Code(s): 9623164447802131 (2) Edema of lower extremity: Status: Acute Code(s): R60.0 - Localized edema SNOMED Code(s): 626115145 (3) Acute kidney injury: Status: Acute Code(s): N17.9 - Acute kidney failure, unspecified SNOMED Code(s): 48305786 (4) Cellulitis of knee, right: Status: Acute Code(s): L03.115 - Cellulitis of right lower limb SNOMED Code(s): 08623818568444529 Plan: Reduce IV fluids, Continue antibiotics Re evaluate patient by HS in AM
[2021-03-27] MEDS: CLEOCIN PO SCH (22:03)
[2021-03-28] MEDS: CLEOCIN PO SCH ×4 (04:59→20:47)
[2021-03-28] MEDS: SODIUM CHLORIDE 1,000 ML IV SCH ×2 (04:59→18:30)
[2021-03-28] MEDS: MAXIPIME 2 GM/50 ML D5W 2 GM/50 ML BAG IV SCH (04:59)
[2021-03-28 05:28] LABS: HEMATOCRIT 41.5 % (42.0-52.0); HEMOGLOBIN 14.3 g/dl (14.0-18.0); MEAN CORPUSCULAR HEMOGLOBIN 30.3 pg (27.0-31.0); MEAN CORPUSCULAR HGB CONC 34.5 (31.8-35.4); MEAN CORPUSCULAR VOLUME 87.9 fl (80.0-94.0); PLATELET COUNT 170 10^3/uL (140-440); RDW COEFFICIENT OF VARIATION 13.6 % (11.6-14.8); RED BLOOD COUNT 4.72 10^6/ul (4.70-6.10); WHITE BLOOD COUNT 9.11 K/ul (4.2-10.2)
[2021-03-28 05:35] LABS: ANISOCYTOSIS NOT PRESENT (NOT PRESENT)
[2021-03-28 05:38] LABS: ALANINE AMINOTRANSFERASE 25.8 U/L (0-50); ALBUMIN 3.36 g/dL (3.5-5.0); ALKALINE PHOSPHATASE 117.2 U/L (38-126); ASPARTATE AMINO TRANSFERASE 34.5 U/L (17-59); BILIRUBIN,TOTAL 0.4 mg/dL (0.2-1.3); BLOOD UREA NITROGEN 20.5 mg/dL (9-20); CALCIUM 8.73 mg/dL (8.4-10.2); CARBON DIOXIDE 22.5 mmol/L (22-30.0); CHLORIDE 112.1 mmol/L (98-107); CREATININE 1.24 mg/dL (0.60-1.10); GLUCOSE 139.1 mg/dL (74-106); POTASSIUM 4.43 mmol/L (3.5-5.1); SODIUM 142.1 mmol/L (134.5-145); TOTAL PROTEIN 6.6 g/dL (6.3-8.2)
--- NOTE | 2021-03-28 07:44 | PCM.PROG ---
Date Seen by Provider: 03/28/21 Time Seen by Provider: 07:43 Subjective: pt improving, no vomiting, tolerating po cleocin Objective: Vitals: T=98.3 F, P=52, R=16, CM=088/79, SPO2=95 HEENT: [] Neck: [] Lungs: [] CVS: [] Abdomen: [] Extremities: [] Neurological: [] Skin: [less reddening, sen and pulses intact in the right knee] Lab/Tests/Diagnostic Imaging: [] (1) Patellar bursitis of right knee: Status: Acute Code(s): M70.51 - Other bursitis of knee, right knee SNOMED Code(s): 9790895933240853 (2) Edema of lower extremity: Status: Acute Code(s): R60.0 - Localized edema SNOMED Code(s): 176358610 (3) Acute kidney injury: Status: Acute Code(s): N17.9 - Acute kidney failure, unspecified SNOMED Code(s): 71977597 (4) Cellulitis of knee, right: Status: Acute Code(s): L03.115 - Cellulitis of right lower limb SNOMED Code(s): 94528577642547921 Plan: continue present medical regimen, care to Dr Parham at 19:00
[2021-03-28] MEDS: LOVENOX SUBCUT SCH (09:02)
[2021-03-28] MEDS: CIPRO PO SCH ×2 (11:50→20:47)
[2021-03-29 05:09] LABS: HEMATOCRIT 42.1 % (42.0-52.0); HEMOGLOBIN 14.6 g/dl (14.0-18.0); MEAN CORPUSCULAR HEMOGLOBIN 30.4 pg (27.0-31.0); MEAN CORPUSCULAR HGB CONC 34.7 (31.8-35.4); MEAN CORPUSCULAR VOLUME 87.5 fl (80.0-94.0); PLATELET COUNT 216 10^3/uL (140-440); RDW COEFFICIENT OF VARIATION 13.4 % (11.6-14.8); RED BLOOD COUNT 4.81 10^6/ul (4.70-6.10); WHITE BLOOD COUNT 12.77 K/ul (4.2-10.2)
[2021-03-29 05:18] LABS: ANISOCYTOSIS NOT PRESENT (NOT PRESENT)
[2021-03-29 05:22] LABS: ALANINE AMINOTRANSFERASE 33.9 U/L (0-50); ALBUMIN 3.67 g/dL (3.5-5.0); ALKALINE PHOSPHATASE 125.2 U/L (38-126); ASPARTATE AMINO TRANSFERASE 44.9 U/L (17-59); BILIRUBIN,TOTAL 0.54 mg/dL (0.2-1.3); BLOOD UREA NITROGEN 21.3 mg/dL (9-20); CALCIUM 9.05 mg/dL (8.4-10.2); CARBON DIOXIDE 24.4 mmol/L (22-30.0); CHLORIDE 110.5 mmol/L (98-107); CREATININE 1.12 mg/dL (0.60-1.10); POTASSIUM 4.65 mmol/L (3.5-5.1); SODIUM 140.8 mmol/L (134.5-145); TOTAL PROTEIN 6.91 g/dL (6.3-8.2)
[2021-03-29 05:25] VITALS: BP 137/77; TEMP 98.7
[2021-03-29] MEDS: CIPRO PO SCH (05:35)
[2021-03-29] MEDS: SODIUM CHLORIDE 1,000 ML IV SCH (08:00)
[2021-03-29] MEDS: CLEOCIN PO SCH (10:27)
--- NOTE | 2021-04-24 09:59 | PCM ---
Allergies Allergies Allergy/AdvReac Type Severity Reaction Status Date / Time meperidine [From Demerol] AdvReac Unknown Verified 03/24/21 19:14 PFSH Medical History Atherosclerosis Cellulitis of knee, right Diverticulosis Psoriasis Tobacco use Surgical History (Updated 03/26/21 @ 13:38 by SRINIVASAN HUYNH) History of open reduction and internal fixation (ORIF) procedure Family History BROTHER Cancer Mother Cancer AUNT Cancer FATHER Cancer Social History Smoking and tobacco status: Current every day smoker Tobacco type: cigarettes Smoking packs per day: 1 Smoking cigarettes per day: 20.0 Years smoked: 27 Smoking pack-years: 27.00 Tobacco: How many years used: 27 Quit status: not considering quitting Alcohol intake: never Medications Medications: Medications Generic Name Dose Route Start Last Admin Trade Name Freq PRN Reason Stop Dose Admin Acetaminophen 650 mg 03/25/21 08:24 03/25/21 18:07 Acetaminophen 325 Mg Tablet PO 650 mg Q6H PRN Administration Pain Ciprofloxacin 500 mg 03/28/21 10:00 03/29/21 05:35 Ciprofloxacin Hcl 500 Mg Tablet PO 03/31/21 09:59 500 mg BIDCIPRO REINALDO Administration Clindamycin HCl 300 mg 03/28/21 13:00 03/28/21 20:47 Clindamycin Hcl 150 Mg Capsule PO 03/31/21 12:59 300 mg QID REINALDO Administration Enoxaparin Sodium 40 mg 03/25/21 09:00 03/28/21 09:02 Enoxaparin Sodium 40 Mg/0.4 Ml Syr SUBCUT 40 mg DAILY REINALDO Administration Sodium Chloride 1,000 mls @ 70 mls/hr 03/27/21 08:41 03/29/21 08:00 Sodium Chloride IV 70 mls/hr .[id number] REINALDO Administration Sodium Chloride 1 syr 03/24/21 20:55 03/26/21 20:40 0.9% Sodium Chloride 10 Ml Disp.Syrin IVF 1 syr PRN PRN Administration To flush IV Body Composition Height: 5 ft 9 in Weight: 202 lb 13.204 oz Body Mass Index (BMI): 29.9 Vital Signs Temperature: 98.7 F Pulse Rate: 55 Respiratory Rate: 18 Blood Pressure: 137/77 O2 Sat by Pulse Oximetry: 95 Lab/Tests/Diagnostic Imaging Lab/Tests/Diagnostic Imaging: Lab Review 03/24/21 03/24/21 03/24/21 21:15 21:15 21:15 WBC 15.20 H D RBC 4.59 L Hgb 13.9 L Hct 41.7 L D MCV 90.8 MCH 30.3 MCHC 33.3 RDW Coeff of Aria 13.6 Plt Count 232 D Immature Gran % (Auto) 0.9 Neut % (Auto) 78.3 H Lymph % (Auto) 11.1 [place] % (Auto) 9.5 Eos % (Auto) 0.1 Baso % (Auto) 0.1 Neut # (Auto) 11.9 H Lymph # (Auto) 1.7 [place] # (Auto) 1.5 Eos # (Auto) 0.0 Baso # (Auto) 0.0 Immature Gran # (Auto) 0.1 Neutrophils % (Manual) Band Neutrophils % Lymphocytes % (Manual) Monocytes % (Manual) Eosinophils % (Manual) Reactive Lymphocytes Anisocytosis ESR Sodium 136.9 Potassium 3.95 Chloride 107.4 H Carbon Dioxide 20.7 L Anion Gap 12.75 BUN 28.1 H Creatinine 1.87 H D Estimated GFR (MDRD) 38.00 BUN/Creatinine Ratio 15.02 Glucose 84.6 Lactic Acid Uric Acid 9.05 H Calcium 8.57 Total Bilirubin 0.38 AST 35.9 ALT 26.5 Alkaline Phosphatase 107.0 Total Creatine Kinase 80.3 Troponin I C-Reactive Prot, Quant Total Protein 6.64 Albumin 3.63 Globulin 3.01 Albumin/Globulin Ratio 1.20 Procalcitonin 0.59 Urine Color Urine Clarity Urine pH Ur Specific [place] Urine Protein Urine Glucose (UA) Urine Ketones Urine Blood Urine Nitrite Urine Bilirubin Urine Urobilinogen Ur Leukocyte Esterase Adenovirus (PCR) B. pertussis DNA (PCR) B.parapertussis DNA PCR C. pneumoniae DNA (PCR) Coronavirus OC43 (PCR) Coronavirus HKU1 (PCR) Coronavirus 229E (PCR) Coronavirus NL63 (PCR) Human Metapneumovir PCR Influenza Type A (PCR) Influenza B (RT-PCR) M. pneumoniae (PCR) Parainfluenza 1 (PCR) Parainfluenza 2 (PCR) Parainfluenza 3 (PCR) Parainfluenza 4 (PCR) RSV (PCR) Entero/Rhino (PCR) SARS-CoV-2 (PCR) 03/24/21 03/24/21 03/24/21 21:15 21:15 23:20 WBC RBC Hgb Hct MCV MCH MCHC RDW Coeff of Aria Plt Count Immature Gran % (Auto) Neut % (Auto) Lymph % (Auto) [place] % (Auto) Eos % (Auto) Baso % (Auto) Neut # (Auto) Lymph # (Auto) [place] # (Auto) Eos # (Auto) Baso # (Auto) Immature Gran # (Auto) Neutrophils % (Manual) Band Neutrophils % Lymphocytes % (Manual) Monocytes % (Manual) Eosinophils % (Manual) Reactive Lymphocytes Anisocytosis ESR Sodium Potassium Chloride Carbon Dioxide Anion Gap BUN Creatinine Estimated GFR (MDRD) BUN/Creatinine Ratio Glucose Lactic Acid 1.86 Uric Acid Calcium Total Bilirubin AST ALT Alkaline Phosphatase Total Creatine Kinase Troponin I 0.014 C-Reactive Prot, Quant Total Protein Albumin Globulin Albumin/Globulin Ratio Procalcitonin Urine Color Urine Clarity Urine pH Ur Specific [place] Urine Protein Urine Glucose (UA) Urine Ketones Urine Blood Urine Nitrite Urine Bilirubin Urine Urobilinogen Ur Leukocyte Esterase Adenovirus (PCR) Not detected B. pertussis DNA (PCR) Not detected B.parapertussis DNA PCR Not detected C. pneumoniae DNA (PCR) Not detected Coronavirus OC43 (PCR) Not detected Coronavirus HKU1 (PCR) Not detected Coronavirus 229E (PCR) Not detected Coronavirus NL63 (PCR) Not detected Human Metapneumovir PCR Not detected Influenza Type A (PCR) Not detected Influenza B (RT-PCR) Not detected M. pneumoniae (PCR) Not detected Parainfluenza 1 (PCR) Not detected Parainfluenza 2 (PCR) Not detected Parainfluenza 3 (PCR) Not detected Parainfluenza 4 (PCR) Not detected RSV (PCR) Not detected Entero/Rhino (PCR) Not detected SARS-CoV-2 (PCR) Not detected 03/25/21 03/25/21 03/25/21 04:58 04:58 04:58 WBC 10.43 H RBC 4.26 L Hgb 13.1 L Hct 38.1 L MCV 89.4 MCH 30.8 MCHC 34.4 RDW Coeff of Aria 13.9 Plt Count 282 Immature Gran % (Auto) 0.9 Neut % (Auto) 78.1 H Lymph % (Auto) 16.7 [place] % (Auto) 3.6 Eos % (Auto) 0.5 Baso % (Auto) 0.2 Neut # (Auto) 8.2 H Lymph # (Auto) 1.7 [place] # (Auto) 0.4 Eos # (Auto) 0.1 Baso # (Auto) 0.0 Immature Gran # (Auto) 0.1 Neutrophils % (Manual) Band Neutrophils % Lymphocytes % (Manual) Monocytes % (Manual) Eosinophils % (Manual) Reactive Lymphocytes Anisocytosis ESR Sodium 134.3 L Potassium 4.01 Chloride 107.1 H Carbon Dioxide 20.5 L Anion Gap 10.71 BUN 31.8 H Creatinine 2.14 H Estimated GFR (MDRD) 32.00 BUN/Creatinine Ratio 14.85 Glucose 98.4 Lactic Acid Uric Acid Calcium 7.79 L Total Bilirubin AST ALT Alkaline Phosphatase Total Creatine Kinase Troponin I C-Reactive Prot, Quant 15 H Total Protein Albumin Globulin Albumin/Globulin Ratio Procalcitonin Urine Color Urine Clarity Urine pH Ur Specific [place] Urine Protein Urine Glucose (UA) Urine Ketones Urine Blood Urine Nitrite Urine Bilirubin Urine Urobilinogen Ur Leukocyte Esterase Adenovirus (PCR) B. pertussis DNA (PCR) B.parapertussis DNA PCR C. pneumoniae DNA (PCR) Coronavirus OC43 (PCR) Coronavirus HKU1 (PCR) Coronavirus 229E (PCR) Coronavirus NL63 (PCR) Human Metapneumovir PCR Influenza Type A (PCR) Influenza B (RT-PCR) M. pneumoniae (PCR) Parainfluenza 1 (PCR) Parainfluenza 2 (PCR) Parainfluenza 3 (PCR) Parainfluenza 4 (PCR) RSV (PCR) Entero/Rhino (PCR) SARS-CoV-2 (PCR) 03/25/21 03/25/21 03/25/21 04:58 04:58 18:00 WBC RBC Hgb Hct MCV MCH MCHC RDW Coeff of Aria Plt Count Immature Gran % (Auto) Neut % (Auto) Lymph % (Auto) [place] % (Auto) Eos % (Auto) Baso % (Auto) Neut # (Auto) Lymph # (Auto) [place] # (Auto) Eos # (Auto) Baso # (Auto) Immature Gran # (Auto) Neutrophils % (Manual) Band Neutrophils % Lymphocytes % (Manual) Monocytes % (Manual) Eosinophils % (Manual) Reactive Lymphocytes Anisocytosis ESR 12 Sodium Potassium Chloride Carbon Dioxide Anion Gap BUN Creatinine Estimated GFR (MDRD) BUN/Creatinine Ratio Glucose Lactic Acid Uric Acid 8.89 H Calcium Total Bilirubin AST ALT Alkaline Phosphatase Total Creatine Kinase Troponin I C-Reactive Prot, Quant Total Protein Albumin Globulin Albumin/Globulin Ratio Procalcitonin Urine Color Yellow Urine Clarity Clear Urine pH 5.5 Ur Specific [place] 1.015 Urine Protein Negative Urine Glucose (UA) Negative Urine Ketones Negative Urine Blood Negative Urine Nitrite Negative Urine Bilirubin Negative Urine Urobilinogen 0.2 Ur Leukocyte Esterase Negative Adenovirus (PCR) B. pertussis DNA (PCR) B.parapertussis DNA PCR C. pneumoniae DNA (PCR) Coronavirus OC43 (PCR) Coronavirus HKU1 (PCR) Coronavirus 229E (PCR) Coronavirus NL63 (PCR) Human Metapneumovir PCR Influenza Type A (PCR) Influenza B (RT-PCR) M. pneumoniae (PCR) Parainfluenza 1 (PCR) Parainfluenza 2 (PCR) Parainfluenza 3 (PCR) Parainfluenza 4 (PCR) RSV (PCR) Entero/Rhino (PCR) SARS-CoV-2 (PCR) 03/26/21 03/26/21 03/27/21 04:49 04:49 05:09 WBC 7.36 7.65 RBC 4.55 L 4.53 L Hgb 13.8 L 13.8 L Hct 40.0 L 39.6 L MCV 87.9 87.4 MCH 30.3 30.5 MCHC 34.5 34.8 RDW Coeff of Aria 13.7 13.5 Plt Count 185 D 132 L Immature Gran % (Auto) 1.4 1.7 Neut % (Auto) 72.3 49.2 Lymph % (Auto) 19.0 29.4 [place] % (Auto) 6.7 16.3 H Eos % (Auto) 0.3 3.0 Baso % (Auto) 0.3 0.4 Neut # (Auto) 5.3 3.8 Lymph # (Auto) 1.4 2.3 [place] # (Auto) 0.5 1.3 Eos # (Auto) 0.0 0.2 Baso # (Auto) 0.0 0.0 Immature Gran # (Auto) 0.1 0.1 Neutrophils % (Manual) Band Neutrophils % Lymphocytes % (Manual) Monocytes % (Manual) Eosinophils % (Manual) Reactive Lymphocytes Anisocytosis ESR Sodium 133.7 L Potassium 4.07 Chloride 109.0 H Carbon Dioxide 17.2 L Anion Gap 11.57 BUN 27.5 H Creatinine 1.59 H D Estimated GFR (MDRD) 46.00 BUN/Creatinine Ratio 17.29 Glucose 92.5 Lactic Acid Uric Acid Calcium 7.59 L Total Bilirubin 0.59 AST 42.1 ALT 25.0 Alkaline Phosphatase 117.0 Total Creatine Kinase Troponin I C-Reactive Prot, Quant Total Protein 5.87 L Albumin 2.99 L Globulin 2.88 Albumin/Globulin Ratio 1.03 Procalcitonin Urine Color Urine Clarity Urine pH Ur Specific [place] Urine Protein Urine Glucose (UA) Urine Ketones Urine Blood Urine Nitrite Urine Bilirubin Urine Urobilinogen Ur Leukocyte Esterase Adenovirus (PCR) B. pertussis DNA (PCR) B.parapertussis DNA PCR C. pneumoniae DNA (PCR) Coronavirus OC43 (PCR) Coronavirus HKU1 (PCR) Coronavirus 229E (PCR) Coronavirus NL63 (PCR) Human Metapneumovir PCR Influenza Type A (PCR) Influenza B (RT-PCR) M. pneumoniae (PCR) Parainfluenza 1 (PCR) Parainfluenza 2 (PCR) Parainfluenza 3 (PCR) Parainfluenza 4 (PCR) RSV (PCR) Entero/Rhino (PCR) SARS-CoV-2 (PCR) 03/27/21 03/28/21 03/28/21 05:09 05:02 05:02 WBC 9.11 RBC 4.72 Hgb 14.3 Hct 41.5 L MCV 87.9 MCH 30.3 MCHC 34.5 RDW Coeff of Aria 13.6 Plt Count 170 Immature Gran % (Auto) Neut % (Auto) Lymph % (Auto) [place] % (Auto) Eos % (Auto) Baso % (Auto) Neut # (Auto) Lymph # (Auto) [place] # (Auto) Eos # (Auto) Baso # (Auto) Immature Gran # (Auto) Neutrophils % (Manual) 36.0 L Band Neutrophils % Lymphocytes % (Manual) 28.0 Monocytes % (Manual) 29.0 H Eosinophils % (Manual) 7.0 H Reactive Lymphocytes Anisocytosis Not present ESR Sodium 138.3 142.1 Potassium 4.29 4.43 Chloride 112.3 H 112.1 H Carbon Dioxide 19.6 L 22.5 Anion Gap 10.69 11.93 BUN 21.0 H 20.5 H Creatinine 1.27 H 1.24 H Estimated GFR (MDRD) 59.00 61.00 BUN/Creatinine Ratio 16.53 16.53 Glucose 117.7 H 139.1 H Lactic Acid Uric Acid Calcium 8.02 L 8.73 Total Bilirubin 0.48 0.40 AST 37.6 34.5 ALT 23.4 25.8 Alkaline Phosphatase 118.5 117.2 Total Creatine Kinase Troponin I C-Reactive Prot, Quant Total Protein 6.12 L 6.60 Albumin 3.09 L 3.36 L Globulin 3.03 3.24 Albumin/Globulin Ratio 1.01 1.03 Procalcitonin Urine Color Urine Clarity Urine pH Ur Specific [place] Urine Protein Urine Glucose (UA) Urine Ketones Urine Blood Urine Nitrite Urine Bilirubin Urine Urobilinogen Ur Leukocyte Esterase Adenovirus (PCR) B. pertussis DNA (PCR) B.parapertussis DNA PCR C. pneumoniae DNA (PCR) Coronavirus OC43 (PCR) Coronavirus HKU1 (PCR) Coronavirus 229E (PCR) Coronavirus NL63 (PCR) Human Metapneumovir PCR Influenza Type A (PCR) Influenza B (RT-PCR) M. pneumoniae (PCR) Parainfluenza 1 (PCR) Parainfluenza 2 (PCR) Parainfluenza 3 (PCR) Parainfluenza 4 (PCR) RSV (PCR) Entero/Rhino (PCR) SARS-CoV-2 (PCR) 03/29/21 03/29/21 05:00 05:00 WBC 12.77 H RBC 4.81 Hgb 14.6 Hct 42.1 MCV 87.5 MCH 30.4 MCHC 34.7 RDW Coeff of Aria 13.4 Plt Count 216 Immature Gran % (Auto) Neut % (Auto) Lymph % (Auto) [place] % (Auto) Eos % (Auto) Baso % (Auto) Neut # (Auto) Lymph # (Auto) [place] # (Auto) Eos # (Auto) Baso # (Auto) Immature Gran # (Auto) Neutrophils % (Manual) 47.0 Band Neutrophils % 2.0 Lymphocytes % (Manual) 33.0 Monocytes % (Manual) 15.0 H Eosinophils % (Manual) 3.0 Reactive Lymphocytes 5.0 Anisocytosis Not present ESR Sodium 140.8 Potassium 4.65 Chloride 110.5 H Carbon Dioxide 24.4 Anion Gap 10.55 BUN 21.3 H Creatinine 1.12 H Estimated GFR (MDRD) 69.00 BUN/Creatinine Ratio 19.01 Glucose 112.0 H Lactic Acid Uric Acid Calcium 9.05 Total Bilirubin 0.54 AST 44.9 ALT 33.9 Alkaline Phosphatase 125.2 Total Creatine Kinase Troponin I C-Reactive Prot, Quant Total Protein 6.91 Albumin 3.67 Globulin 3.24 Albumin/Globulin Ratio 1.13 Procalcitonin Urine Color Urine Clarity Urine pH Ur Specific [place] Urine Protein Urine Glucose (UA) Urine Ketones Urine Blood Urine Nitrite Urine Bilirubin Urine Urobilinogen Ur Leukocyte Esterase Adenovirus (PCR) B. pertussis DNA (PCR) B.parapertussis DNA PCR C. pneumoniae DNA (PCR) Coronavirus OC43 (PCR) Coronavirus HKU1 (PCR) Coronavirus 229E (PCR) Coronavirus NL63 (PCR) Human Metapneumovir PCR Influenza Type A (PCR) Influenza B (RT-PCR) M. pneumoniae (PCR) Parainfluenza 1 (PCR) Parainfluenza 2 (PCR) Parainfluenza 3 (PCR) Parainfluenza 4 (PCR) RSV (PCR) Entero/Rhino (PCR) SARS-CoV-2 (PCR) Orders Category Date Time Status PLACE PATIENT OBSERVATION .TO MEDSURG (MONITORED BED ADMISSION 03/24/21 23:47 Active ) EKG-(ED ONLY) Stat CARDIO 03/24/21 23:07 Completed INTAKE & OUTPUT Q8HR CARE 03/24/21 23:48 Active TELEMETRY MONITORING TELE CARE 03/24/21 23:47 Active REGULAR DIET DIETARY 03/24/21 Breakfast Ordered IV [ED IV/MEDIPORT/POWERPORT] .ONCE EMERGENCY 03/24/21 20:55 Active BASIC METABOLIC PANEL DAILY@0600 LAB 03/25/21 04:58 Completed BLOOD CULTURE (ED ONLY) Stat LAB 03/24/21 21:15 Results CBC W/ AUTO DIFF DAILY@0600 LAB 03/25/21 04:58 Completed CBC W/ AUTO DIFF DAILY@0600 LAB 03/26/21 04:49 Completed CBC W/ AUTO DIFF Routine LAB 03/27/21 05:09 Completed CBC W/ AUTO DIFF Routine LAB 03/28/21 05:02 Completed CBC W/ AUTO DIFF Routine LAB 03/29/21 05:00 Completed CBC W/ AUTO DIFF Stat LAB 03/24/21 21:15 Completed CMP [COMPREHENSIVE METABOLIC PANEL] Routine LAB 03/26/21 04:49 Completed CMP [COMPREHENSIVE METABOLIC PANEL] Routine LAB 03/29/21 05:00 Completed CMP [COMPREHENSIVE METABOLIC PANEL] Stat LAB 03/24/21 21:15 Completed COMPREHENSIVE METABOLIC PANEL Routine LAB 03/27/21 05:09 Completed COMPREHENSIVE METABOLIC PANEL Routine LAB 03/28/21 05:02 Completed CPK [CREATINE KINASE] Stat LAB 03/24/21 21:15 Completed CRP [C-REACTIVE PROTEIN] Routine LAB 03/25/21 04:58 Completed ESR Routine LAB 03/25/21 04:58 Completed LACTIC ACID Stat LAB 03/24/21 21:15 Completed MANUAL DIFFERENTIAL Routine LAB 03/28/21 05:02 Completed MANUAL DIFFERENTIAL Routine LAB 03/29/21 05:00 Completed PROCALCITONIN Stat LAB 03/24/21 21:15 Completed RESPIRATORY PANEL 2.1 (PCR) Stat LAB 03/24/21 23:20 Completed TROPONIN I Stat LAB 03/24/21 21:15 Completed UA [URINALYSIS C & S IF INDICATED] Stat LAB 03/24/21 20:54 Completed URIC ACID Routine LAB 03/25/21 04:58 Completed URIC ACID Stat LAB 03/24/21 21:15 Completed 0.9 % Sodium Chloride [Saline Flush] MEDS 03/24/21 20:55 Active 1 syr IVF PRN PRN Acetaminophen [Tylenol] MEDS 03/25/21 08:24 Active 650 mg PO Q6H PRN Cefepime 2 gm/D5w [Maxipime 2 gm/50 ml D5w] MEDS 03/24/21 23:45 Discontinued 2 gm in 50 ml IV Q12HR Cefepime 2 gm/D5w [Maxipime 2 gm/50 ml D5w] MEDS 03/26/21 07:30 Discontinued 2 gm in 50 ml IV Q8HR Ciprofloxacin HCl [Cipro] MEDS 03/28/21 10:00 Active 500 mg PO BIDCIPRO Clindamycin Phosphate/D5w [Cleocin 600 mg/50 ml D5w] MEDS 03/25/21 09:00 Discontinued 600 mg in 50 ml IV Q8HR Clindamycin [Cleocin] MEDS 03/27/21 22:00 Discontinued 300 mg PO Q8HR Clindamycin [Cleocin] MEDS 03/28/21 13:00 Active 300 mg PO QID Enoxaparin Sodium [Lovenox] MEDS 03/25/21 09:00 Active 40 mg SUBCUT DAILY Ketorolac Tromethamine [Toradol] MEDS 03/24/21 20:55 Discontinued 30 mg IVP ONCE STA Sodium Chloride 0.9% [Sodium Chloride] 1,000 ml MEDS 03/25/21 07:30 Discontinued IV 125 mls/hr Sodium Chloride 0.9% [Sodium Chloride] 1,000 ml MEDS 03/27/21 08:41 Active IV 70 mls/hr Sodium Chloride 0.9% [Sodium Chloride] 1,000 ml MEDS 03/24/21 21:00 Discontinued IV QSHIFT RESUSCITATION STATUS Routine OTHERS 03/24/21 23:48 Ordered CHEST, 2 VIEWS PA & LAT Stat RADS 03/24/21 20:[address] ABDOMEN/PELVIS WO CONTRAST Stat RADS 03/24/21 20:56 Completed Medications Generic Name Dose Route Start Last Admin Trade Name Freq PRN Reason Stop Dose Admin Acetaminophen 650 mg 03/25/21 08:24 03/25/21 18:07 Acetaminophen 325 Mg Tablet PO 650 mg Q6H PRN Administration Pain Ciprofloxacin 500 mg 03/28/21 10:00 03/29/21 05:35 Ciprofloxacin Hcl 500 Mg Tablet PO 03/31/21 09:59 500 mg BIDCIPRO REINALDO Administration Clindamycin HCl 300 mg 03/28/21 13:00 03/28/21 20:47 Clindamycin Hcl 150 Mg Capsule PO 03/31/21 12:59 300 mg QID REINALDO Administration Enoxaparin Sodium 40 mg 03/25/21 09:00 03/28/21 09:02 Enoxaparin Sodium 40 Mg/0.4 Ml Syr SUBCUT 40 mg DAILY REINALDO Administration Sodium Chloride 1,000 mls @ 70 mls/hr 03/27/21 08:41 03/29/21 08:00 Sodium Chloride IV 70 mls/hr .[id number] REINALDO Administration Sodium Chloride 1 syr 03/24/21 20:55 03/26/21 20:40 0.9% Sodium Chloride 10 Ml Disp.Syrin IVF 1 syr PRN PRN Administration To flush IV Discontinued Medications Generic Name Dose Route Start Last Admin Trade Name [place] PRN Reason Stop Dose Admin Clindamycin HCl 300 mg 03/27/21 22:00 03/28/21 04:59 Clindamycin Hcl 150 Mg Capsule PO 03/30/21 21:59 300 mg Q8HR REINALDO Administration Sodium Chloride 1,000 mls @ 125 mls/hr 03/24/21 21:00 03/25/21 06:50 Sodium Chloride IV 125 mls/hr QSHIFT REINALDO Administration CEFEPIME 2 GM/D5W 2 gm in 50 mls @ 100 mls/hr 03/24/21 23:45 03/25/21 21:29 Maxipime 2 Gm/50 Ml D5w IV 03/27/21 23:44 100 mls/hr Q12HR REINALDO Administration Sodium Chloride 1,000 mls @ 125 mls/hr 03/25/21 07:30 03/27/21 14:46 Sodium Chloride IV Not Given .Q8H REINALDO Clindamycin Phosphate 600 mg in 50 mls @ 75 mls/hr 03/25/21 09:00 03/27/21 21:27 Cleocin 600 Mg/50 Ml D5w IV 03/28/21 14:00 75 mls/hr Q8HR REINALDO Administration CEFEPIME 2 GM/D5W 2 gm in 50 mls @ 100 mls/hr 03/26/21 07:30 03/28/21 04:59 Maxipime 2 Gm/50 Ml D5w IV 03/29/21 07:29 100 mls/hr Q8HR REINALDO Administration Ketorolac Tromethamine 30 mg 03/24/21 20:55 03/24/21 23:49 Ketorolac Tromethamine 30 Mg/Ml Vial IVP 03/24/21 20:56 30 mg ONCE STA Administration Assessment (1) Patellar bursitis of right knee: Status: Acute Code(s): M70.51 - Other bursitis of knee, right knee SNOMED Code(s): 8315036794152746 (2) Edema of lower extremity: Status: Acute Code(s): R60.0 - Localized edema SNOMED Code(s): 058788992 (3) Acute kidney injury: Status: Acute Code(s): N17.9 - Acute kidney failure, unspecified SNOMED Code(s): 21148092 (4) Cellulitis of knee, right: Status: Acute Code(s): L03.115 - Cellulitis of right lower limb SNOMED Code(s): 81013665304864609
--- NOTE | 2021-05-01 08:28 | PN ---
DATE OF VISIT: 03/25/21 SUBJECTIVE: Mr. Tran was admitted by Dr. Laura for a cellulitis of the right knee. No complaints overnight. The nursing staff noted that he has rested well. PHYSICAL EXAMINATION: VITAL SIGNS: Temperature 98.8, pulse 81, BP 100/51, respiratory rate 18, 02 sat 95 on room air. PHYSICAL EXAMINATION: HEENT: Pupils are round. NECK: Supple. CHEST: Clear. CARDIOVASCULAR: Regular rate and rhythm. ABDOMEN: Soft, nontender. EXTREMITIES: Minimal erythema over the tibial tubericle. There is warmth. There does not appear to be instability. No obvious evidence of abscess formation. He has good mobility. ASSESSMENT: 1. Cellulitis of the right knee - improved. Per labs, his creatinine has jumped up to 2. It should be noted he received a dose of Toradol in the night and was on Bactrim prior to being admitted. These have been discontinued. We have asked for Toradol to be discontinued. He is on Cephalosporin. I have asked for Susan to look at his antibiotic profile. He had received Vancomycin I believe prior to today. This was not continued. I asked the nursing staff to talk to Susan about adding Clinamycin to the Cefepime. I asked for repeat labs tomorrow. Carefully watching renal function. He is on 125 cc of fluid. He denies any dark discolored urine. [facility]
--- NOTE | 2021-06-07 09:20 | PCM.PROG ---
Date Seen by Provider: 06/07/21 Time Seen by Provider: 09:18 Subjective: C Objective: Vitals: T=98.7 F, P=55, R=18, YP=304/77, SPO2=95; Ht 5 Ft 9 in; Wt 202 # (13.20 oz HEENT: Clear Neck: [] Lungs: [] CVS: [] Abdomen: [] Extremities: [] Neurological: [] Skin: [] Lab/Tests/Diagnostic Imaging: [] (1) Patellar bursitis of right knee: Status: Acute Code(s): M70.51 - Other bursitis of knee, right knee SNOMED Code(s): 4093829651799311 (2) Edema of lower extremity: Status: Acute Code(s): R60.0 - Localized edema SNOMED Code(s): 499105657 (3) Acute kidney injury: Status: Acute Code(s): N17.9 - Acute kidney failure, unspecified SNOMED Code(s): 65748867 (4) Cellulitis of knee, right: Status: Acute Code(s): L03.115 - Cellulitis of right lower limb SNOMED Code(s): 08880443985319129 Plan: Discharge to home after
--- NOTE | 2021-06-07 12:10 | PCM.DC ---
Final Diagnosis: Patellar Bursitis Rt Knee Edema Rt Lower leg Acute Kidney Injury (1) Patellar bursitis of right knee: Status: Acute Code(s): M70.51 - Other bursitis of knee, right knee SNOMED Code(s): 6558133224145349 (2) Edema of lower extremity: Status: Acute Code(s): R60.0 - Localized edema SNOMED Code(s): 817869648 (3) Acute kidney injury: Status: Acute Code(s): N17.9 - Acute kidney failure, unspecified SNOMED Code(s): 86667511 (4) Cellulitis of knee, right: Status: Acute Code(s): L03.115 - Cellulitis of right lower limb SNOMED Code(s): 27096164076313004 Reason for Hospitalization: This patient is a 51 y/o male who was recently in the hospital on March 26 for severe pain in his right knee and leg. Patient previously been admitted last week and was discharged home on Friday afternoon after treatment for acute cellulitis of the right knee with suspected infectious bursitis I was advised by Dr. Diaz the previous hospitalist that patient was very anxious to be discharged yesterday and accommodated his wishes so discharged him to home. Had been receiving IV maxipine Vancomycin for antibiotic coverage. At time of discharge . He was prescribed cephalexin Patient states he felt pretty well when he went home but after arriving he yardwork for several hours. In the evening he became increasingly more fatigued with increasing pain in his affected knee /leg. He worked again outdoors and became weak started having chills body aching which has since resolved. He again came to the ER for evaluation and treatment. Prognosis at Discharge: Good Condition at Discharge: Stable Medications at Discharge: Ambulatory Orders Medication Instructions Recorded hydrocodone 7.5 mg-acetaminophen 1 tab PO Q8H PRN #10 tab 03/23/21 325 mg tablet sulfamethoxazole 800 1 tab PO BID #20 tab 03/23/21 mg-trimethoprim 160 mg tablet (Bactrim DS) Lab/Diagnostics: See Chart Education Provided to Patient and Family: yes Follow-ups: Dr Burciaga's office at [facility] 7:30 AM 03/30 2021 Discharge Disposition: Home Hospital Course: This patient is a 51 y/o male who was recently in the hospital on March 26 for severe pain in his right knee and leg. Patient previously been admitted last week and was discharged home on Friday afternoon after treatment for acute cellulitis of the right knee with suspected infectious bursitis I was advised by Dr. Diaz the previous hospitalist that patient was very anxious to be discharged yesterday and accommodated his wishes so discharged him to home. Had been receiving IV maxipine Vancomycin for antibiotic coverage. At time of discharge . He was prescribed cephalexin Patient states he felt pretty well when he went home but after arriving he yardwork for several hours. In the evening he became increasingly more fatigued with increasing pain in his affected knee /leg. He worked again outdoors and became weak started having chills body aching which has since resolved. He again came to the ER for evaluation and treatment. Diagnostic lab studies. CT scan of the abdomen was obtained on March 24 for evaluation of abdominal discomfort. The impressions revealed that the gallbladder was contracted but Juan Sujit was noted and hypodensity suggested that I could represent Adenomyomatosis,Or Adema related to hepatitis versus acalculus cholecystitis. Chest x-ray was normal. Blood culture was negative after five days Hospital Course. Aftter admission patient treated for pain and administer IV antibiotics Clindamycin and Cipro prior to discharge as recommeded by Dr Burciaga On March 29, 2021 at the time of my reevaluation patient persisted to have some discomfort around the right knee. I'm concerned about underlying infection and the necessity for further orthopedic evaluation I contacted [facility] [place] [facility] and spoke with the on-call physician who is Dr. Burciaga. Discuss the case with Dr. Burciaga agree to see him and outpatient Consultation made the recommendation of placing him on the oral ciprofloxacin and that he would be willing to see him He was given an appointment for 7:30 AM on March 30, 2021. Who is there for discharged on the afternoon of March 29, 2021 in stable condition. Instructed to follow up community PCP in 5-7 days Plan: Discharged to home as indicated above Avoid prolonged up activity Keep leg elevated See Dr Burciaga for evaluation Rx meds as prescribed.
== END 2021-03-29 11:25 | disposition home or self-care (01) ==
LOC: MEDSURG A 19:03 → ED 19:03 → MEDSURG A 03-25 00:15
PROVIDERS: ADMIT Emergency Medicine; ATTEND Emergency Medicine
DX: N17.9 Acute kidney failure, unspecified; R60.0 Localized edema; L03.115 Cellulitis of right lower limb